=== PATIENT | female | born 1960 | race Caucasian/White ===

== ENCOUNTER 2019-06-04 08:16 | Inpatient (IN) ==
--- NOTE | 2019-05-17 08:33 | PAT Medication Instructions ---
Medication Instructions Date of Service May 17, 2019 Home Medications amlodipine 5 mg PO QPM coQ10 (ubiquinol) 400 mg PO QPM [Glucosamine-MSM Complex] 1 tab PO QPM lisinopril 40 mg PO QPM meloxicam 15 mg PO QPM multivitamin 1 tab PO QPM pravastatin 20 mg PO QPM ASK your surgeon for instructions meloxicam 15 mg PO QPM STOP taking 2 weeks before surgery If surgery is within 2 weeks, stop taking as soon as possible. coQ10 (ubiquinol) 400 mg PO QPM [Glucosamine-MSM Complex] 1 tab PO QPM Take evening before surgery amlodipine 5 mg PO QPM lisinopril 40 mg PO QPM multivitamin 1 tab PO QPM pravastatin 20 mg PO QPM NOTHING TO EAT OR DRINK AFTER MIDNIGHT Other Notes If you have any questions please call us at [phone] or [phone] or [phone] or [phone]
--- NOTE | 2019-05-17 10:02 | Anesthesiology Consultation ---
Date of Service May 17, 2019 Assessment & Plan (1) Encounter for pre-operative examination: Preseptal vs orbital cellulitis -- patient is currently being treated with second round of ABX and eye drops. She will be seeing her PCP for f/u and pre-op clearance prior to surgery. Chart Review Chart Review: Acceptable Risk for Surgery and Patient seen in Pre Admission Testing Teaching & Discussion Instructed NPO after midnight before surgery, except medications with 15 cc of water. Medication instructions provided according to the PAT guidelines. History Surgery Operation Date: 06/04/19 07:45 Proposed Procedures p L4-S1 Decompression and Fusion, Spinal Cord Monitoring - David Ferguson, Height/Weight Height: 5 ft 2.5 in Weight: 94.5 kg Allergies Allergy/AdvReac Type Severity Reaction Status Date / Time MCCRACKEN CATHETER AdvReac Intermediate EXTREME Uncoded 05/17/19 10:15 ABDOMINAL PAIN Medications Home Medications Medication Instructions Recorded Confirmed Last Taken amlodipine 5 mg PO QPM 05/11/19 05/11/19 Unknown coQ10 (ubiquinol) 400 mg PO QPM 05/11/19 05/11/19 Unknown yzcldxjtb-yeb-T-karen-herbal 21 1 tab PO QPM 05/11/19 05/11/19 Unknown [Glucosamine-MSM Complex] lisinopril 40 mg PO QPM 05/11/19 05/11/19 Unknown meloxicam 15 mg PO QPM 05/11/19 05/11/19 Unknown multivitamin 1 tab PO QPM 05/11/19 05/11/19 Unknown pravastatin 20 mg PO QPM 05/11/19 05/11/19 Unknown Past Medical History Medical History Arthritis Hx of migraines Hyperlipidemia Hypertension Spinal stenosis Urinary, incontinence, stress female Exercise / Class Metabolic Activity II 4-5 Yardwork/Stairs/Walk up hill (Denies CP or SOB with 1 FOS) Past Family History Family History Mother Family history of diabetes mellitus Past Surgical History Surgical History History of appendectomy History of colonoscopy History of dilatation and curettage History of tonsillectomy and adenoidectomy Hx of cone biopsy of cervix Hx of hysterectomy [place] teeth removed Past Anesthesia History No Hx of Anesthesia Complications and No Family Hx of Anesthesia Complications History of PONV No Hx of PONV and No Hx of Motion Sickness Social History Smoking Status: Never smoker Do You Dip or Chew Tobacco: No Hx Alcohol Use: No Hx Substance Use: No Review of Systems Pt denies any recent chest pain, shortness of breath, palpitations, cough, fever or URI. +ORBITAL/PRESEPTAL CELLULITIS, BEING TREATED WITH ANTIBIOTIC EYE DROPS AND PO CLINDAMYCIN. WILL HAVE FOLLOW-UP/CLEARANCE WITH PCP PRIOR TO SURGERY. Physical Exam Vital Signs BP: 146/80 (PCP monitoring and pt keeping log of home readings) P: 82bpm SPO2: 98% RA T: 98.0 F R: 16 Constitutional + obese ENMT Mouth: + dental restorations (fillings and bonding only); no chipped teeth and no loose teeth Thyromental Distance: < 3.5 Finger Breadths (2.5) Mallampati Class: II (narrow posterior oropharynx) Eyes: L sclera erythematous and watery. No purulent discharge. Periorbital skin erythematous, nontender. R eye normal. Neck normal visual inspection and + limited neck extension (mildly) Respiratory normal respiratory effort Auscultation: lungs clear to auscultation bilaterally Cardiovascular Rate/Rhythm: regular rate and regular rhythm Heart Sounds: no murmur Extremities: no edema Testing Laboratory Results 05/17/19 10:42 05/17/19 10:42 PT 11.1 Seconds (9.0-12.0) 05/17/19 10:42 INR 1.1 (0.9-1.1) 05/17/19 10:42 APTT 29.9 Seconds (21.0-31.0) 05/17/19 10:42 Urine Color Yellow 05/17/19 Unknown Urine Appearance Clear (Clear) 05/17/19 Unknown Urine pH 7.0 (4.5-7.5) 05/17/19 Unknown Ur Specific [place] 1.009 (1.000-1.030) 05/17/19 Unknown Urine Protein Negative (Negative) 05/17/19 Unknown Urine Glucose (UA) Negative (Negative) 05/17/19 Unknown Urine Ketones Negative (Negative) 05/17/19 Unknown Urine Nitrite Negative (Negative) 05/17/19 Unknown Ur Leukocyte Esterase Negative (Negative) 05/17/19 Unknown Blood Type O Positive 05/17/19 10:42 Antibody Screen NEGATIVE 05/17/19 10:42 Electrocardiogram Date: 05/17/19 Findings: + NSR @ (83bpm with PACs) Chest X-Ray Date: 05/17/19 Findings: + NAD
--- NOTE | 2019-05-17 11:11 | XRay Report ---
XR chest Pre-admission PA/Lat CLINICAL HISTORY: 58 years-old Female presenting with preoperative assessment. TECHNIQUE: PA and lateral views of the chest were obtained. COMPARISON: None. FINDINGS: Cardiomediastinal silhouette normal. Lungs and pleural spaces clear. Degenerative changes of the thor acic spine. Upper abdomen normal. IMPRESSION: 1. No acute cardiopulmonary disease. ACT 112: Negative or not required by law. Electronically signed by: Vahe Fair M.D. 05/17/2019 11:10 AM
[2019-05-17 11:33] LABS: Basophils # (auto) 0.04 K/uL (0-0.2); Basophils % (auto) 0.8 %; Eosinophils # (auto) 0.16 K/uL (0-0.5); Hematocrit (blood only) 40.6 % (37-47); Hemoglobin 13.8 g/dL (12.0-16.0); Immature Granulocytes # (auto) 0.01 K/uL (0.00-0.02); Immature Granulocytes % (auto) 0.2 %; Lymphocytes # (auto) 1.75 K/uL (1.2-3.4); Lymphocytes % (auto) 33.3 %; Mean Corpuscular Hemoglobin 33.8 pg (25-34); Mean Corpuscular Volume 99.5 fL (80-100); Mean Platelet Volume 10.2 fL (7.4-10.4); Monocytes # (auto) 0.61 K/uL (0.11-0.59); Monocytes % (auto) 11.6 %; Neutrophils # (auto) 2.68 K/uL (1.4-6.5); Neutrophils % (auto) 51.1 %; Platelet Count 251 K/uL (130-400); RDW Coefficient of Variation 12.5 % (11.5-14.5); RDW Standard Deviation 45.6 fL (36.4-46.3); Red Blood Count 4.08 M/uL (4.2-5.4); White Blood Count 5.25 K/uL (4.8-10.8)
[2019-05-17 11:48] LABS: INR 1.1 (0.9-1.1); Partial Thromboplastin Ratio 1.1; Partial Thromboplastin Time 29.9 Seconds (21.0-31.0); Prothrombin Time 11.1 Seconds (9.0-12.0)
[2019-05-17 11:50] LABS: BUN Creatinine Ratio 23.1 (10-20); Calcium 9.4 mg/dl (8.5-10.1); Creatinine Clr Calc Pharmacy 95.7 ml/min; Est GFR (African American) 110.4; Est GFR (Non-African American) 95.2; Potassium 4.3 mmol/L (3.5-5.1)
[2019-05-17 12:10] LABS: Appearance Urine Clear (Clear); Bilirubin Urine Negative (Negative); Blood Urine Negative (Negative); Color Urine Yellow; Glucose Urine UA Negative (Negative); Ketones Urine Negative (Negative); Leukocyte Esterase Urine Negative (Negative); Nitrite Urine Negative (Negative); Protein Urine Negative (Negative); Specific Gravity Urine 1.009 (1.000-1.030); Urobilinogen Urine Negative (Negative)
--- NOTE | 2019-05-17 13:12 | Electrocardiogram Report ---
Test Reason : Blood Pressure : / mmHG Vent. Rate : 083 BPM Atrial Rate : 083 BPM P-R Int : 158 ms QRS Dur : 090 ms QT Int : 378 ms P-R-T Axes : 069 075 060 degrees QTc Int : 444 ms Sinus rhythm with Premature atrial complexes Otherwise normal ECG No previous ECGs available Confirmed by Rene Quinones ([id number]) on 05/17/2019 1:12:27 PM Referred By: David Ferguson Confirmed By:Rene Quinones
--- NOTE | 2019-05-25 11:21 | History & Physical Report ---
Date of Service May 25, 2019 Assessment & Plan (1) Lumbar disc herniation with radiculopathy: At this time the patient having progressive decline in neurologic function increased pain and inability to ambulate. Subsequently recommending urgent decompression fusion L4-5 L5-S1 in order to avoid permanent neurologic sequela I with lower extremity weakness risks of blood clots from the lower extremity disuse. Risk benefits pros cons alternatives were outlined in detail. Present on Admission?: Yes History of Present Illness Chief Complaint: Back and leg pain with progressive weakness Primary Care Provider: SYLVIA GARDUNO This is a 58-year-old female that presents with severe back and bilateral leg pain with marked limitations with standing and ambulation. She is noting progressive neuro deficits and weakness to the lower extremities. Allergies Allergy/AdvReac Type Severity Reaction Status Date / Time MCCRACKEN CATHETER AdvReac Intermediate EXTREME Uncoded 05/17/19 10:15 ABDOMINAL PAIN Home Medications Home Medications Medication Instructions Recorded Confirmed Type amlodipine 5 mg PO QPM 05/11/19 05/11/19 History coQ10 (ubiquinol) 400 mg PO QPM 05/11/19 05/11/19 History kunrzreag-zdx-Z-karen-herbal 21 1 tab PO QPM 05/11/19 05/11/19 History [Glucosamine-MSM Complex] lisinopril 40 mg PO QPM 05/11/19 05/11/19 History meloxicam 15 mg PO QPM 05/11/19 05/11/19 History multivitamin 1 tab PO QPM 05/11/19 05/11/19 History pravastatin 20 mg PO QPM 05/11/19 05/11/19 History Past Med/Surg History Medical History Arthritis Hx of migraines Hyperlipidemia Hypertension Spinal stenosis Urinary, incontinence, stress female Surgical History History of appendectomy History of colonoscopy History of dilatation and curettage History of tonsillectomy and adenoidectomy Hx of cone biopsy of cervix Hx of hysterectomy [place] teeth removed Family History Mother Family history of diabetes mellitus Social History Preferred Language: [place] Pigment And Lacquer Mixer Required: No Beliefs That Will Affect Care: None Current Living Situation: Spouse Feels Safe at Home: Yes Safety Concerns: Feels Safe At This Time Smoking Status: Never smoker Do You Dip or Chew Tobacco: No ; Second Hand Exposure: No ; Tobacco Cessation Education Requested by Patient: No Hx Alcohol Use: No Hx Substance Use: No Physical Exam Physical Exam: Patient is alert and oriented Patient exhibits stooped posture with ambulation. Bench exam reveals 4/5 bilateral dorsiflexion and 4+/5 quadricep bilaterally. Plantarflexion appears to be intact. Deep tendon reflexes are blunted. Heart is regular rate and rhythm Lungs clear to auscultation Results & Data Diagnostic Findings MRI lumbar spine demonstrates evidence of marked to space collapse and retrolisthesis at L5-S1. There is anterolisthesis appreciable at L4-5 with bilateral massive facet cysts left greater than right. Axial views confirm facet cyst occupying the lateral recesses and central canal creating severe spinal stenosis.
[~2019-06-04 08:16] MED LIST: ACETAMINOPHEN 500 MG TAB PO SCH; CEFAZOLIN 2000MG 2,000 MG/15 ML SYR IV SCH; CeleBREX 200 MG CAP PO SCH; GABAPENTIN 600 MG DOSE PO SCH; LR 15ML/HR IV SCH; SODIUM CHLORIDE 0.9% 250 ML IV PRN
--- NOTE | 2019-06-04 09:19 | History & Physical Bridge Note ---
Date of Service June 04, 2019 History & Physical Bridge Note I have examined the patient, reviewed the History & Physical and in the interval since the performance of the History & Physical I have noted the following changes of clinical significance: no changes noted
[2019-06-04] MEDS ORDERED: MIDAZOLAM HCL 1 MG/ML 2ML VIAL ONE (09:38)
[2019-06-04] MEDS ORDERED: fentaNYL citrate 100 MCG/2 ML VIAL ONE (09:38)
[2019-06-04] MEDS ORDERED: ROCURONIUM BROMIDE 10 MG/ML 5 ML VIAL ONE (09:38)
[2019-06-04] MEDS ORDERED: ONDANSETRON INJ 2 MG/ML 2 ML VIAL ONE (09:38)
[2019-06-04] MEDS ORDERED: LIDOCAINE HCL 2% 2 ML VIAL/AMP(20MG/ML) INFIL ONE (09:38)
[2019-06-04] MEDS ORDERED: PROPOFOL IV EMULSION 10 MG/ML 20 ML VIAL IV ONE (09:38)
[2019-06-04] MEDS ORDERED: ONDANSETRON INJ 2 MG/ML 2 ML VIAL IV PRN ×2 (09:43→14:21)
[2019-06-04] MEDS ORDERED: HYDROmorphone INJ 2 MG/ML SYR/VIAL IV PRN (09:43)
[2019-06-04] MEDS ORDERED: ePHEDrine sulfate 50 MG/ML AMP IV PRN (09:43)
[2019-06-04] MEDS ORDERED: ATROPINE SULFATE 0.1 MG/ML 10ML SYR IV PRN (09:43)
[2019-06-04] MEDS ORDERED: PROMETHAZINE HCL 12.5 MG in SODIUM CHLORIDE 0.9% 50 ML IV PRN ×2 (09:43→14:21)
[2019-06-04] MEDS ORDERED: fentaNYL citrate 100 MCG/2 ML VIAL IV PRN (09:43)
[2019-06-04] MEDS ORDERED: METOCLOPRAMIDE HCL INJ 5 MG/ML 2 ML VIAL IV PRN ×2 (09:43→14:21)
[2019-06-04] MEDS ORDERED: BUPIVACAINE/EPINEPHRINE 0.5% MPF 1:200,000 10 ML VIAL ONE (09:50)
[2019-06-04] MEDS ORDERED: BACITRACIN INJ 50,000 UNIT VIAL ONE (09:50)
[2019-06-04] MEDS ORDERED: FLOSEAL HEMOSTATIC MATRIX 10ML TOP ONE (11:06)
[2019-06-04] MEDS ORDERED: HYDROmorphone INJ 2 MG/ML SYR/VIAL ONE (12:06)
--- NOTE | 2019-06-04 12:48 | Operative Report ---
Post Operative Report Pre & Post Diagnosis Operation Date: 06/04/19 10:05 Pre-Op Diagnosis: Lumbar Disc Herniation with Radiculopathy L4-S1 Post-Op Diagnosis: Lumbar Disc Herniation with Radiculopathy L4-S1 I identified the patient and participated in the time-out.: Yes Procedure Operation Date: 06/04/19 10:05 Actual Procedures #1 lumbar decompression with bilateral medial facetectomies and foraminotomies L3-4, L4-5 and L5-S1. #2 posterior spinal fusion L4-5 L5-S1. #3 placement posterior instrumentation L4-5 L5-S1 per #4 interbody fusion L4-5 and L5-S1. #5 placed a peek cage 13 x 22 mm at L4-5 and 8 x 22 mm at L5-S1. #6 placement locally harvested morselized autograft in the posterior lateral gutters. #7 placement infuse collagen sponge combined master graft in the posterior lateral gutters and ostial amp and interbody space. Surgeon David Ferguson, DO Cardiac Technologist Carmen Solis Estimated Blood Loss 250 Findings See Below The patient is 5 foot 2 inches tall weighing over 94 kg with a BMI in excess of 37. The patient's body habitus did add significant technical difficulty requiring her deepest retractors and longus instruments in order to perform her procedure. This added at least 40% increase in the operative time. Specimens None Indications This is a 58-year-old female who presents with above-mentioned diagnosis. Patient had severe spinal stenosis and significant decline in ability to ambulate and lower extremity strength. Subsequently she underwent urgent decompression and fusion. Description of Procedure Patient was met with preoperatively case discussed all questions addressed. After informed consent obtained patient was taken to the operative suite underwent intubation placed in a prone position the Asad table on top of the [place] frame. All bony prominences well-padded eyes inspected to ensure no external pressure placed upon the. This point the lumbar spine was prepped and draped in the normal sterile fashion. Sharp dissection with the assistance of Bovie cautery performed down to and exposing the lamina and transverse processes of L4-L5 and the sacral ala bilaterally. From a caudal cephalad fashion complete laminectomy of L5 L4 and partial laminectomy of L3 was performed including bilateral medial facetectomies and foraminotomies addressing severe spinal stenosis as well as to massive facet cyst at the 4 5 levels. After this complete pedicle screws were placed in L4-L5 and S1 levels bilaterally with assistance of fluoroscopy and the proper sized jaret placed. By way of a trans- foraminal approach on the right a complete discectomy L5 was was performed endplates curetted to subcortical being bone and a 8 x 22 mm peek cage with osteo-bone graft tapped in position. Then proceeded to L for [address] of a transforaminal approach on the right complete discectomy performed endplate s produce subcortical mean bone and a 13 x 22 mm peek cage filled with osteo- bone graft tapped in position. The rods were then locked in final position bilaterally. The transverse processes of L4-L5 and sacral ala burred to subcortical bleeding bone. Infuse collagen sponge master graft local autograft placed in the posterior lateral gutters. 15 round SANDRA drain inserted. The incision was then closed with 1 Vicryl in the fascia 2-0 Vicryl subcutaneously and 4 Monocryl for final skin closure. Steri-Strip sterile dressings placed. Patient will continue PACU stable condition. Please note spinal cord monitoring was utilized that the procedure no changes noted. Lastly Carmen Solis was present at the entire procedure involved the patient positioning complex portions of the surgery and final skin closure. I attest to the content of the Intraoperative Record and any orders documented therein. Any exceptions are noted below.
--- NOTE | 2019-06-04 13:14 | Fluoroscopy Report ---
FL lumbar spine 2-3V CLINICAL HISTORY: L4-S1 DECOMP COMPARISON STUDY: None. FLUOROSCOPY TIME: 24.4 seconds. FLUOROSCOPIC IMAGES: 2 FINDINGS: These images demonstrate L4-L5 and L5-S1 discectomies with interbody spacer placement. Post erior decompression is noted. Bilateral pedicle screws at the L4, L5 and S1 levels with interconnecti ng rods are noted. Hardware is intact. IMPRESSION: Fluoroscopy provided for L4-L5 and L5-S1 discectomies and bilateral pedicle screw fusion . ACT 112: Negative or not required by law. Electronically signed by: Mark Cordova M.D. 06/04/2019 1:13 PM
--- NOTE | 2019-06-04 14:00 | Anesthesiology Progress Note ---
Date of Service June 04, 2019 Anesthesia Post Procedure Vital Signs Vital Signs: Temp Pulse Pulse Resp BP Pulse Ox 06/04/19 13:45 102 H 15 137/96 96 06/04/19 13:35 99 H 14 149/88 H 100 06/04/19 13:29 36.4 C L 99 H 16 149/88 H 100 06/04/19 08:44 36.8 C 100 H 16 149/90 H 95 Transfer of Care Handoff Completed per policy Notes Mental Status: alert / awake / arousable and participated in evaluation Patient Amnestic to Procedure: Yes Nausea / Vomiting: adequately controlled Pain: adequately controlled Airway Patency, RR, SpO2: stable & adequate BP & HR: stable & adequate Hydration State: stable & adequate Anesthetic Complications: no major complications apparent
[2019-06-04] MEDS ORDERED: ALUMINUM/MAGNESIUM SUSP 30 ML UDC PO PRN (14:21)
[2019-06-04] MEDS ORDERED: bisacodyL 10 MG SUPP PR PRN (14:21)
[2019-06-04] MEDS ORDERED: OXYCODONE HCL IR 5 MG TAB (IMMEDIATE RELEASE) PO PRN (14:21)
[2019-06-04] MEDS ORDERED: ACETAMINOPHEN 1,000 MG/100 ML VIAL IV PRN (14:21)
[2019-06-04] MEDS ORDERED: MAGNESIUM HYDROXIDE SUSP 30 ML UDC PO PRN (14:21)
[2019-06-04] MEDS ORDERED: DO NOT ADMINISTER PNEUMOCOCCAL VACCINE PRN (14:21)
[2019-06-04] MEDS ORDERED: HYDROmorphone INJ 1 MG/ML SYRINGE IV PRN (14:21)
[2019-06-04] MEDS ORDERED: HYDROmorphone INJ 0.5 MG/0.5 ML SYR IV PRN (14:21)
[2019-06-04] MEDS ORDERED: ONDANSETRON 4 MG OD TAB PO PRN (14:21)
[2019-06-04] MEDS ORDERED: LORazepam 0.5 MG TAB PO PRN (14:21)
[2019-06-04] MEDS ORDERED: SOD PHOSPHATE/SOD BIPHOSPHATE ENEMA 132 ML BTL PR PRN (14:21)
[2019-06-04] MEDS ORDERED: DO NOT ADMINISTER FLU VACCINE PRN (14:21)
[2019-06-04] MEDS ORDERED: LORazepam 0.5 MG/1 ML VIAL IV PRN (14:21)
[2019-06-04] MEDS ORDERED: NALOXONE HCL 0.4 MG/1 ML VIAL/CARP IV PRN (14:21)
[2019-06-04] MEDS ORDERED: FAMOTIDINE 20 MG TAB PO PRN (14:21)
[2019-06-04] MEDS ORDERED: TRAMADOL HCL 50 MG TABLET PO PRN (14:21)
[2019-06-04] MEDS: PATIENT'S ALLERGY INFO NEEDS ENTERED SCH ×5 (14:33→14:47)
[2019-06-04] MEDS: LACTATED RINGER'S 1,000 ML IV SCH (15:10)
[2019-06-04] MEDS: KETOROLAC TROMETHAMINE 15 MG/ML VIAL IV SCH ×5 (15:11→20:21)
[2019-06-04] MEDS: CEFAZOLIN 2000MG 2,000 MG/15 ML SYR IV SCH (18:00)
[2019-06-04] MEDS: DOCUSATE SODIUM/SENNA 50/8.6MG TAB PO SCH (20:19)
[2019-06-04] MEDS: MULTIVITAMIN TAB PO SCH (20:20)
[2019-06-04] MEDS: PRAVASTATIN SOD 20 MG TAB PO SCH (20:20)
[2019-06-04] MEDS: lisinopriL 40 MG TAB PO SCH (20:24)
[2019-06-04] MEDS: AMLODIPINE BESYLATE 5 MG TAB PO SCH (20:25)
[2019-06-04] MEDS ORDERED: COQ10 PO SCH (21:00)
[2019-06-05] MEDS: LACTATED RINGER'S 1,000 ML IV SCH (00:47)
[2019-06-05] MEDS: CEFAZOLIN 2000MG 2,000 MG/15 ML SYR IV SCH (02:54)
[2019-06-05] MEDS: KETOROLAC TROMETHAMINE 15 MG/ML VIAL IV SCH ×2 (02:55→09:35)
[2019-06-05 05:05] LABS: Basophils # (auto) 0.01 K/uL (0-0.2); Basophils % (auto) 0.1 %; Hemoglobin 10.7 g/dL (12.0-16.0); Immature Granulocytes # (auto) 0.03 K/uL (0.00-0.02); Immature Granulocytes % (auto) 0.2 %; Lymphocytes # (auto) 1.17 K/uL (1.2-3.4); Lymphocytes % (auto) 9.5 %; Mean Corpuscular Hemoglobin 33.4 pg (25-34); Mean Corpuscular Hgb Conc 33.4 g/dL (32-36); Mean Platelet Volume 10.5 fL (7.4-10.4); Monocytes % (auto) 9.7 %; Neutrophils # (auto) 9.94 K/uL (1.4-6.5); Neutrophils % (auto) 80.5 %; Platelet Count 229 K/uL (130-400); RDW Coefficient of Variation 12.9 % (11.5-14.5); RDW Standard Deviation 47.1 fL (36.4-46.3); White Blood Count 12.35 K/uL (4.8-10.8)
[2019-06-05 05:36] LABS: BUN Creatinine Ratio 17.9 (10-20); Calcium 8.3 mg/dl (8.5-10.1); Creatinine Clr Calc Pharmacy 104.3 ml/min; Est GFR (Non-African American) 99.2
[2019-06-05] MEDS: POLYETHYLENE (MIRALAX) 17 GM PACK PO SCH ×3 (05:50→17:52)
--- NOTE | 2019-06-05 08:02 | Anesthesiology Progress Note ---
Date of Service June 05, 2019 Anesthesia Post Procedure Vital Signs Vital Signs: Temp Pulse Pulse Pulse Resp BP Pulse Ox 06/05/19 07:15 36.6 C 80 16 116/73 95 06/05/19 02:55 36.7 C 97 H 16 121/73 95 06/04/19 23:34 36.6 C 102 H 16 110/66 94 06/04/19 20:19 109 H 131/76 06/04/19 19:00 36.8 C 105 H 16 126/82 95 06/04/19 17:08 36.6 C 109 H 16 118/79 96 06/04/19 16:01 36.3 C L 115 H 16 121/72 95 06/04/19 15:13 36.4 C L 98 H 16 127/74 97 06/04/19 14:34 36.4 C L 84 16 132/80 92 06/04/19 14:03 36.4 C L 97 H 16 138/83 97 06/04/19 13:45 102 H 15 137/96 96 06/04/19 13:35 99 H 14 149/88 H 100 06/04/19 13:29 36.4 C L 99 H 16 149/88 H 100 06/04/19 08:44 36.8 C 100 H 16 149/90 H 95 Pain Intensity Lower Back: Pain Intensity: 3 Notes Mental Status: alert / awake / arousable and participated in evaluation Nausea / Vomiting: adequately controlled Pain: adequately controlled Airway Patency, RR, SpO2: stable & adequate BP & HR: stable & adequate Hydration State: stable & adequate Anesthetic Complications: no major complications apparent
--- NOTE | 2019-06-05 10:24 | Orthopedic Progress Note ---
Date of Service June 05, 2019 Assessment & Plan (1) Lumbar disc herniation with radiculopathy: At this time we will continue physical therapy monitor SANDRA output anticipate discharge home in the next few days. Present on Admission?: Yes Admission and Anticipated Discharge Date Admission Date: June 04, 2019 Subjective Back pain controlled leg symptoms markedly improved. Physical Exam Physical Exam: Patient is in the chair at the bedside. She demonstrates improved strength testing. She tolerated physical therapy well. Results & Data ([facility]) Vital Signs (Past 12 Hours) Vital Signs Temp Pulse Pulse Resp BP Pulse Ox 06/05/19 07:15 36.6 C 80 16 116/73 95 06/05/19 02:55 36.7 C 97 H 16 121/73 95 06/04/19 23:34 36.6 C 102 H 16 110/66 94
[2019-06-05] MEDS: ACETAMINOPHEN 500 MG TAB PO PRN (19:49)
[2019-06-05] MEDS: DOCUSATE SODIUM/SENNA 50/8.6MG TAB PO SCH (20:54)
[2019-06-05] MEDS: MULTIVITAMIN TAB PO SCH (20:58)
[2019-06-05] MEDS: PRAVASTATIN SOD 20 MG TAB PO SCH (20:58)
[2019-06-05] MEDS: lisinopriL 40 MG TAB PO SCH (20:58)
[2019-06-05] MEDS: AMLODIPINE BESYLATE 5 MG TAB PO SCH (20:58)
[2019-06-06] MEDS: POLYETHYLENE (MIRALAX) 17 GM PACK PO SCH (00:52)
[2019-06-06] MEDS: ACETAMINOPHEN 500 MG TAB PO PRN (05:54)
--- NOTE | 2019-06-06 10:45 | Discharge Summary ---
Date of Service June 06, 2019 Admission HPI Per Admitting Provider This is a 58-year-old female that presents with severe back and bilateral leg pain with marked limitations with standing and ambulation. She is noting progressive neuro deficits and weakness to the lower extremities. Principal Diagnosis Lumbar spinal stenosis with neurogenic claudication Discharge Data Allergies Allergy/AdvReac Type Severity Reaction Status Date / Time latex Allergy Unknown Unknown Verified 06/04/19 08:47 MCCRACKEN CATHETER AdvReac Intermediate EXTREME Uncoded 06/04/19 08:47 ABDOMINAL PAIN Consultations 06/04/19 14:21 Consult Case Management - Discharge Planning Routine Procedures Performed Operation Date: 06/04/19 10:05 Actual Procedures p L4-S1 Decompression and Instrumented Fusion, with Application of Osteoamp Allograft, Application of Bone Morphogenetic Protein, Interbody Fusion and Spinal Cord Monitoring(Not Applicable) - David Ferguson DO Ordered Studies 06/04/19 10:05 FL fluoroscopy <1hr Routine [place] lumbar spine 2-3V Routine Hospital Course (1) Lumbar disc herniation with radiculopathy: Patient underwent lumbar decompression fusion tolerated this well was taken to orthopedic for postoperative. Postop day #1 her leg symptoms and s trength appear to be improving. She progressed to postop day #2 SANDRA drain decreasing appropriately. Pain well controlled. Subsequently discharged home. Discharge orders and instructions from the chart for further review. Total Time Total Time Spent Total Time Spent (In Minutes): 20 minutes Discharge Plan Discharge Items Patient Disposition: Home - Self-Care Reason For Visit: THORACOLUMBAR & LUMBOSACRAL IV DISC DISORDER Discharge Diagnosis: Lumbar spinal stenosis with neurogenic claudication Activity: As commented below Non-emergency contact: Primary Care Provider Call non-emergency contact if: you have any medication questions Follow-up/Referrals: SYLVIA GARDUNO [Other] Diet: Regular Addtl Attending Provider Instructions: ACTIVITY RECOMMENDATIONS: SELF CARE INSTRUCTIONS AFTER THORACIC/LUMBAR FUSIONS 1. You may walk to your tolerance. It is good exercise for your legs and back. Expect some back and intermittent leg aches and pains. 2. You may perform "counter-top" level activities (make a sandwich, marce with a project, etc.). 3. No bending or lifting of more than 10 pounds or back twisting of any nature (roll like a log when turning in bed). 4. You may ride in a car for 20-30 minutes at a time. No driving until after your first visit with your doctor. 5. Frequent changes of position and restricting sitting to 30 minutes at a time will help limit the amount of back spasms and stiffness you may experience. 6. You may discontinue the use of ambulatory aids (cane, crutches, etc.) once your strength and confidence allow. 7. You may propulsion machinery service engineer the shower and let water strike your incision when you arrive home at least once daily. Do not take a tub bath, sit in a hot tub or go into a swimming pool until after your first recheck in the office. SPECIAL CARE INSTRUCTIONS: VERY IMPORTANT TO READ AND REVIEW A. Your surgical incision has been closed with a cosmetic suture under the skin that will dissolve in about 6 weeks. In 14 days, you can use a pair of clean scissors and cut the suture that is left outside of the skin at the ends of your incision. 1. The small skin tapes can be removed 7 days after surgery if they have not fallen off by that point. 2. You may keep the wound open to air as much as possible to promote healing after post-op day number 5 unless told otherwise by your doctor. 3. If you think the wound looks like it is becoming infected (redness or worsening drainage) and/or you are experiencing fever, chill or worsening back pain and muscle spasms, contact the office so that we may evaluate you as soon as possible. B. Complications are uncommon, but please contact us if you have any signs or symptoms of: 1. wound infection (fever higher than 102.5 degrees F, redness, separation of wound, drainage, or increasing pain from the incision) 2. blood clots in legs (pain, swelling, redness and warmth in legs) 3. urinary tract infection (fever higher than 102.5 degrees F, burning upon urination or increased frequency of urination) 4. nerve problems (inability to walk on your toes or heels, numbness, loss of bowel or bladder control) 5. any other symptoms that concern you C. Please call the office at if you have any concerns or questions about your operation or recovery. D. No smoking! Smoking drastically decreases the chance of a solid fusion. E. Do not take any anti-inflammatory medications (Indocin, Advil, Motrin, Aspirin, Naprosyn, etc.) as these may inhibit the chance of a solid fusion. Tylenol is okay to take for pain. MANAGING PAIN AFTER SPINAL SURGERY 1. Narcotic medication is intended for short-term use and will be provided for surgical pain. Surgical pain usually lasts for a period of 4-6 weeks. Narcotic medication includes Percocet, Vicodin, Darvocet, Tylenol #3 or Lortab. 2. Longer-term pain is more appropriately treated with non-narcotic medication such as Tylenol ES. 3. Muscle spasm is not appropriately treated with narcotics. Muscle relaxers such as Soma, Flexeril or Skelaxin can be used along with Tylenol ES. 4. Remember that we all live with some "aches and pains". This is not unusual or uncommon after an injury or as we get older. a. Back pain is expected and may include muscle spasms for 4 to 6 weeks after surgery. The pain should gradually improve. If the pain worsens for no apparent reason, please contact the office. b. Intermittent leg pain may also be experienced and should not be concerned about unless it worsens for no apparent reason. If so, please contact the office. 5. We will provide appropriate medication within the normal guidelines of their prescribed use. We will also be very cautious and aware of potential abuse and extended duration of patients' medication needs. a. Pain medications are for your comfort and to assist with sleep and rest so that the tissue can heal. They are not provided in order to return to normal activity and should not be used through the day. To do so or worsening pain at night can result from ongoing tissue damage and developm ent of tolerance to the prescribed medicine. 6. Please allow 2-3 days to process refills. Prescriptions will not be mailed but must be picked up at the office. FOLLOW UP VISIT: Keep your scheduled follow-up appointment. Any questions, please call the office at . Pending Studies at Discharge: No Stand-Alone Forms: [employer], Smoking Cessation Medications and DC Order Prescriptions: New oxycodone 5 mg tablet 5 mg PO Q6H PRN (Reason: pain, severe) Qty: 30 RF: 0 tramadol 50 mg tablet 50 mg PO Q6H PRN (Reason: pain, moderate) Qty: 30 RF: 0 Continued multivitamin Tablet 1 tab PO QPM RF: 0 Glucosamine-MSM Complex Tablet 1 tab PO QPM RF: 0 amlodipine 5 mg Tablet 5 mg PO QPM RF: 0 pravastatin 20 mg Tablet 20 mg PO QPM RF: 0 lisinopril 40 mg Tablet 40 mg PO QPM RF: 0 coQ10 (ubiquinol) 200 mg Capsule 400 mg PO QPM RF: 0 Discontinued meloxicam 15 mg Tablet 15 mg PO QPM RF: 0 Discharge Orders: Discharge Order (Routine); Ordered 06/06/19 Ordered By: David Ferguson Admission Data Admit Date/Time: 06/04/19 13:32 Attending Provider: David Ferguson Admit Provider: David Ferguson
== END 2019-06-06 14:24 | disposition home or self-care (01) | DRG 455 ==
LOC: ASU 08:16 → 3E 13:32

== ENCOUNTER 2021-04-12 11:47 | Inpatient (IN) ==
[2021-04-12] MEDS ORDERED: KETOROLAC 30 MG/ML VIAL IV ONE (12:12)
[2021-04-12] MEDS ORDERED: CYCLOBENZAPRINE HCL 10 MG TAB PO STA (12:12)
--- NOTE | 2021-04-12 12:40 | Emergency Department Note ---
Impression & Plan Lumbar disc herniation with radiculopathy, Spinal stenosis, Bladder incontinence ED Provider Note CHIEF COMPLAINT: Back pain HISTORY OF PRESENT ILLNESS: No Manley is a 60 year old female with history of lumbar disc herniation s/p decompression, fusion and hardware placement with Dr. Ferguson in May 2019 who presents to the Emergency Department for evaluation of pain to her mid-lower back radiating into her bilateral buttocks, hips, groin and bilateral legs with associated intermittent numbness/tingling in her right toes which has been worsening over the past 7-8 months. Her symptoms are worse on the right side and she associates some weakness in her right leg as well. She also states that her bladder is becoming harder to control as she has become more incontinent. No incontinence of her bowels. She did have one episode of numbness/tingling in her groin last week but that has since subsided, no additional saddle paresthesias. She does note intermittent spasming pains radiating to her perispinal region and upper back. No specific pain or paresthesias in her neck or arms. Currently, she rates her discomfort as a 10/10 which worsens with attempts of laying flat. She has been sleeping sitting up in a chair due to her pains. She has been using ice/heat, stretching and taking Tylenol and Meloxicam without relief of her symptoms. Prior to the time of onset of her symptoms, the patient states that she had suffered a fall back in September after having a knee replacement. She did have imaging at that time which showed "disc problems and fluid" above where she had previously had surgery. Since then, the patient had been following with pain management and at her last appointment in December, she had a steroid injection in the SI joint. Following that appointment, her pain and symptoms have continued and have since become worse as described above. After discussion with pain management, they advised that she follow up with Dr. Ferguson of Ortho spine for further management. The patient did attempt to make an appointment with Dr. Ferguson but as she was unable to get in until next month and she was no longer able to take the pain anymore, she presents to the ED for further evaluation today. The patient otherwise denies recent fevers/chills, cough, chest pain, shortness of breath, abdominal pain, nausea, vomiting, diarrhea or other acute symptoms. REVIEW OF SYSTEMS: 10 systems were reviewed and were negative unless otherwise stated in HPI as above PHYSICAL EXAM: VITALS: Vitals are noted on the nurse's note and reviewed by myself. Hypertensive and tachycardic. Additional vital signs stable. General: Resting at the edge of the bed, tearful but no acute distress Head/Eyes: Normocephalic, atraumatic, PERRL, EOMI Neck: No mid-line cervical tenderness, ROM intact without pain Resp: Good inspiratory effort on room air, lung sounds clear bilaterally CV: Tachycardic rate, regular rhythm, peripheral pulses palpated Back/Buttocks: Tender to palpation about the midline thoracic and lumbar spine, no obvious step-offs or deformities, no specific tenderness to palpation of the perispinal musculature or buttocks. Abd: Soft, non-tender MSK/Neuro: Tender to palpation of the bilateral hips, R>L, notes tenderness to the bilateral groin and medial thighs radiating into the posterior knees but not reproducible to palpation. Sensation intact and strength 5/5 throughout all extremities Neuro: Awake, alert and oriented x 3, interacting and answering questions ирина ropriately Differential diagnosis includes musculoskeletal, disc herniation, fracture, metastatic disease, cord compression, discitis, sciatica, cauda equina, as well as other pathologies were considered. EMERGENCY DEPARTMENT COURSE: Physical exam and history were performed. Nursing triage notes, EMR, and medication list were personally reviewed. Patient with history of lumbar disc herniation s/p decompression, fusion and hardware placement with Dr. Ferguson in May 2019 who presents to the Emergency Department for evaluation of pain to her mid-lower back radiating into her bilateral buttocks, hips, groin and bilateral legs with associated intermittent numbness/tingling in her right toes which has been worsening over the past 7-8 months. Her symptoms are worse on the right side and she associates some weakness in her right leg as well. She also states that her bladder is becoming harder to control as she has become more incontinent. No incontinence of her bowels. She did have one episode of numbness/tingling in her groin last week but that has since subsided, no additional saddle paresthesias. She does note intermittent spasming pains radiating to her perispinal region and upper back. No specific pain or paresthesias in her neck or arms. Additional history as described above. On exam, she was resting at the edge of the bed, tearful but no acute distress. She did note tenderness to palpation about the midline thoracic and lumbar spine, no obvious step-offs or deformities, no specific tenderness to palpation of the paraspinal musculature or buttocks. Tender to palpation of bilateral hips, right greater than left, notes tenderness to the bilateral groin and medial thighs radiating into the posterior knees but not reproducible to palpation. Sensation intact and strength 5/5 throughout all extremities. No other significant findings on exam. The patient was offered pain medication. IV access was established and she was given Solu-Medrol 40 mg, Toradol 30 mg and Flexeril 10 mg. MRI of the thoracic and lumbar spine were obtained and reviewed by radiologist and myself as below. Of note, there was a disc bulge and superimposed right paracentral disc extrusion with superior subligamentous migration at L3-L4 in addition to facet arthrosis and ligamentous hypertrophy resulting in moderate to severe narrowing of the central canal and severe stenosis of the bilateral lateral recesses and neural foramen. Upon reevaluation, the patient was having increased muscle spasm-like pains after returning from the MRI but declined additional medication at this time. I discussed the results of the MRI with Dr. Ferguson of orthopedic spine. He suggested admitting the patient to medicine and he would be available for consultation. I did discuss the patient's case with Dr. Marquez of the [facility] hospitalist group who agreed to evaluate the patient for ongoing management. I updated the patient on my discussions with Dr. Ferguson as well as Dr. Marquez. She verbalized her understanding and agreement with the treatment plan as above. The chart was completed utilizing [employer] Voice Recognition Software. Grammatical errors, random word insertions, pronoun errors, and incomplete sentences are an occasional consequence of this system due to software limitations, ambient noise, and hardware issues. Any formal questions or concerns about the content, text, or information contained within the body of this dictation should be directly addressed to the provider for clarification. Past Med/Surg History Medical History Arthritis Hx of migraines Hyperlipidemia Hypertension Lumbar disc herniation with radiculopathy Spinal stenosis Urinary, incontinence, stress female Surgical History History of appendectomy History of colonoscopy History of dilatation and curettage History of lumbar surgery History of tonsillectomy and adenoidectomy Hx of cone biopsy of cervix Hx of hysterectomy [place] teeth removed Family History Mother Family history of diabetes mellitus Social History Smoking Status: Never smoker Second Hand Exposure: No; Hx Alcohol Use: No Hx Substance Use: No Preferred Language: Macedonian Communication Ability: Effective Registration Rep Required: No Beliefs That Will Affect Care: None marital status: Current Living Situation: Spouse Feels Safe at Home: Yes Assistive Devices: Walker Allergies Allergies Allergy/AdvReac Type Severity Reaction Status Date / Time latex Allergy Unknown Unknown Verified 04/12/21 15:00 [employer] AdvReac Intermediate EXTREME Uncoded 04/12/21 15:00 ABDOMINAL PAIN Home Meds Home Medications Medication Instructions Recorded Confirmed amlodipine 5 mg tablet 5 mg PO QPM 05/11/19 04/12/21 coQ10 (ubiquinol) 200 mg capsule 400 mg PO QPM 05/11/19 04/12/21 lisinopril 40 mg tablet 40 mg PO QPM 05/11/19 04/12/21 multivitamin 1 tab PO QPM 05/11/19 04/12/21 pravastatin 20 mg tablet 20 mg PO QPM 05/11/19 04/12/21 acetaminophen 650 mg 1,300 mg PO Q12H PRN 04/12/21 04/12/21 tablet,extended release meloxicam 15 mg tablet 15 mg PO PM 04/12/21 04/12/21 Results & Data (ED) Vital Signs Vital Signs - 24 hr 04/12/21 11:51 04/12/21 12:51 Temperature 36.7 C Temperature Source Temporal Artery Scan Pulse Rate 112 H Respiratory Rate 18 14 Respiratory Effort / Characteristics Non-Labored Respiratory Depth Normal Normal Blood Pressure 193/91 H Blood Pressure Mean 125 Pulse Oximetry 95 99 Oxygen Delivery Method Room Air Room Air Sepsis Recent Fever Within 48 Hours No Sepsis New/Unexplained Change in Mental Status No Sepsis Action Taken by Nursing No Action Required Administered Medications Discontinued Medications Cyclobenzaprine HCl (Cyclobenzaprine Hcl 10 Mg Tab) 10 mg PO NOW STA Stop: 04/12/21 12:13 Last Admin: 04/12/21 12:43 Dose: 10 mg Documented by: [id number] Ketorolac Tromethamine (Ketorolac 30 Mg/Ml Vial) 30 mg IV NOW ONE Stop: 04/12/21 12:13 Last Admin: 04/12/21 12:43 Dose: 30 mg Documented by: [id number] Methylprednisolone (Methylprednisolone 40 Mg/Ml Vial) 40 mg IV NOW STA Stop: 04/12/21 12:13 Last Admin: 04/12/21 12:43 Dose: 40 mg Documented by: [id number] Imaging Data Radiologist's Impression: Thoracic Spine MRI 04/12/21 12:11 THORACIC SPINE MRI HISTORY: mid-lower back pain radiating down buttocks/legs TECHNIQUE: Multiplanar multisequence MRI of the thoracic spine was performed without the use of contrast. COMPARISON: None. FINDINGS: Mild disc space narrowing at C4-C5, C5-C6, and C6-C7. There is 1 mm of anterolisthesis of C4 on C5 and 1 mm retrolisthesis of C5 on C6. Broad-based posterior disc bulge at C5-C6 results in mild central canal narrowing at this level. There is moderate to severe disc space narrowing from T3 through L1 consistent with degenerative change. There are tiny endplate osteophytes within the majority of the thoracic spine. The thoracic spinal cord demonstrates a normal course, caliber, and signal intensity. There are small broad-based posterior disc bulges from C3 through L1 resulting in multilevel mild central canal narrowing. Multilevel bilateral neural foraminal narrowing within the mid to lower thoracic spine due to the disc bulges. No areas of high-grade central canal stenosis. Paravertebral soft tissues are unremarkable. Mild endplate degenerative changes within the lower thoracic spine. No fracture or subluxation. IMPRESSION: 1. No fracture or subluxation within the thoracic spine. 2. Moderate to severe disc space narrowing from T3 through L1 with broad-based posterior disc bulges resulting in multilevel mild central canal and mild bilateral neural foraminal narrowing. No high-grade central canal stenosis within the thoracic spine ACT 112: Negative or not required by law. Electronically signed by: Julián Hahn M.D. 04/12/2021 2:32 PM Lumbar Spine MRI 04/12/21 12:12 MRI OF THE LUMBAR SPINE WITHOUT CONTRAST CLINICAL HISTORY: mid-lower back pain radiating down buttocks/legs COMPARISON STUDY: Lumbar spine fluoroscopic images June 04, 2019. TECHNIQUE: Utilizing a 1.5 Cecille magnet and dedicated coil, multiplanar, multiecho imaging of the lumbar spine was performed without IV contrast. FINDINGS: For purposes of numbering on this exam, the L5-S1 disc space is assigned to axial image 36 and 38. There are postoperative findings consistent with L4-L5 and L5-S1 discectomies with posterior decompression and bilateral pedicle screw fusion from L4 through S1. No intracanalicular mass or fluid collection is present. Conus terminates at the L2 level. Paravertebral soft tissues are unremarkable. There is no lumbar spine fracture. There is no suspicious marrow replacement. L1-2: The central canal and neural foramen are patent. There is mild facet arthrosis. L2-3: There is moderate facet arthrosis. Central canal and neural foramen are patent. L3-4: Note is made of a disc bulge with superimposed right paracentral disc extrusion with superior subligamentous migration. Note is made of facet arthrosis with ligamentous hypertrophy. There is moderate to severe narrowing of the central canal. There is severe narrowing of the bilateral neural foramen and lateral recesses. Patent AP diameter of the canal is 7 mm L4-5: There is no residual central canal stenosis status post decompression. Neural foramen are patent. L5-S1: There is no residual central canal stenosis status post decompression. Neural foramen are suboptimally assessed due to susceptibility artifact. There is mild to moderate bilateral neural foraminal stenosis. IMPRESSION: 1. Disc bulge and superimposed right paracentral disc extrusion with superior subligamentous migration at L3-L4 in addition to facet arthrosis and ligamentous hypertrophy. The findings result in moderate to severe narrowing of the central canal and severe stenosis of the bilateral lateral recesses and neural foramen. 2. Otherwise patent central canal. 3. Status post L4-S1 discectomies, posterior decompression and bilateral pedicle screw fusion. 4. No lumbar spine fracture. ACT 112: Negative or not required by law. Electronically signed by: Mark Cordova M.D. 04/12/2021 2:44 PM Discharge Plan Visit Data Chief Complaint: Back Injury/Pain Stated Complaint: LOW BACK PAIN ED Provider: Anurag Cordoba ED Midlevel Provider: Joselyn Lua Discharge Problem: Lumbar disc herniation with radiculopathy, Spinal stenosis, Bladder incontinence Patient Disposition: Admitted As Inpatient Discharge Instructions Interventions: ED Discharge Assessment Last Done: 04/12/21 17:25
--- NOTE | 2021-04-12 14:34 | Magnetic Resonance Report ---
THORACIC SPINE MRI HISTORY: mid-lower back pain radiating down buttocks/legs TECHNIQUE: Multiplanar multisequence MRI of the thoracic spine was performed without the use of contr ast. COMPARISON: None. FINDINGS: Mild disc space narrowing at C4-C5, C5-C6, and C6-C7. There is 1 mm of anterolisthesis of C4 on C5 an d 1 mm retrolisthesis of C5 on C6. Broad-based posterior disc bulge at C5-C6 results in mild central canal narrowing at this level. There is moderate to severe disc space narrowing from T3 through L1 co nsistent with degenerative change. There are tiny endplate osteophytes within the majority of the tho racic spine. The thoracic spinal cord demonstrates a normal course, caliber, and signal intensity. Th ere are small broad-based posterior disc bulges from C3 through L1 resulting in multilevel mild centr al canal narrowing. Multilevel bilateral neural foraminal narrowing within the mid to lower thoracic spine due to the disc bulges. No areas of high-grade central canal stenosis. Paravertebral soft tissu es are unremarkable. Mild endplate degenerative changes within the lower thoracic spine. No fracture or subluxation. IMPRESSION: 1. No fracture or subluxation within the thoracic spine. 2. Moderate to severe disc space narrowing from T3 through L1 with broad-based posterior disc bulges resulting in multilevel mild central canal and mild bilateral neural foraminal narrowing. No high-gra de central canal stenosis within the thoracic spine ACT 112: Negative or not required by law. Electronically signed by: Julián Hahn M.D. 04/12/2021 2:32 PM
--- NOTE | 2021-04-12 14:45 | Magnetic Resonance Report ---
MRI OF THE LUMBAR SPINE WITHOUT CONTRAST CLINICAL HISTORY: mid-lower back pain radiating down buttocks/legs COMPARISON STUDY: Lumbar spine fluoroscopic images June 04, 2019. TECHNIQUE: Utilizing a 1.5 Cecille magnet and dedicated coil, [facility] without IV contrast. FINDINGS: For purposes of numbering on this exam, the L5-S1 disc space is assigned to axial image 36 and 38. Th ere are postoperative findings consistent with L4-L5 and L5-S1 discectomies with posterior decompress ion and bilateral pedicle screw fusion from L4 through S1. No intracanalicular mass or fluid collecti on is present. Conus terminates at the L2 level. Paravertebral soft tissues are unremarkable. There i s no lumbar spine fracture. There is no suspicious marrow replacement. L1-2: The central canal and neural foramen are patent. There is mild facet arthrosis. L2-3: There is moderate facet arthrosis. Central canal and neural foramen are patent. L3-4: Note is made of a disc bulge with superimposed right paracentral disc extrusion with superior s ubligamentous migration. Note is made of facet arthrosis with ligamentous hypertrophy. There is moder ate to severe narrowing of the central canal. There is severe narrowing of the bilateral neural cathryn en and lateral recesses. Patent AP diameter of the canal is 7 mm L4-5: There is no residual central canal stenosis status post decompression. Neural foramen are paten t. L5-S1: There is no residual central canal stenosis status post decompression. Neural foramen are subo ptimally assessed due to susceptibility artifact. There is mild to moderate bilateral neural foramina l stenosis. IMPRESSION: 1. Disc bulge and superimposed right paracentral disc extrusion with superior subligamentous migratio n at L3-L4 in addition to facet arthrosis and ligamentous hypertrophy. The findings result in moderat e to severe narrowing of the central canal and severe stenosis of the bilateral lateral recesses and neural foramen. 2. Otherwise patent central canal. 3. Status post L4-S1 discectomies, posterior decompression and bilateral pedicle screw fusion. 4. No lumbar spine fracture. ACT 112: Negative or not required by law. Electronically signed by: Mark Cordova M.D. 04/12/2021 2:44 PM
--- NOTE | 2021-04-12 15:34 | History & Physical Report ---
Date of Service April 12, 2021 Assessment & Plan (1) Spinal stenosis: Plan: Severe symptoms. Able to tolerate pain by sitting down a leaning over but standing up for only short periods causing weakness in her legs. Doubtful benefit of steroids at this stage since it has been slowly progressive. Much worse over the last week. Failed outpatient management with steroids injection by pain management. Pain management with acetaminophen, Toradol and oxycodone. She is low risk candidate for surgery. Medically optimized for surgery at this time pending routine labs and EKG. Consult ortho spine as likely to need operative management. (2) Lumbar disc herniation with radiculopathy: Plan: As above (3) Hyperlipidemia: Plan: Continue pravastatin (4) Hypertension: Plan: Continue amlodipine and lisinopril (5) Urinary, incontinence, stress female: Plan: Noted acute on chronic issue, do not suspect cauda equina Plan: VTE Prophylaxis - low risk Diet - regular, NPO after midnight Disposition - observation status to med/surg Admission and Anticipated Discharge Date Admission Date: Apr 12, 2021 History of Present Illness Chief Complaint: Back pain, leg pain and leg weakness Primary Care Provider: SYLVIA GARDUNO No Manley is a 60 year old female who presents to the ER with mid-low back pain radiating down both legs with associated paresthesias. She has a significant history of lumbar disc herniation with radiculopathy L4-S1 requiring operative treatment with lumbar decompression and posterior spinal fusion L4-5, L5-S1 in 2019. Since her fall in June last year she has been having progressively worsening back pain radiating down both legs; right > left. She underwent lumbar MRI in November with subsequent LESI without any significant relief. She had planned to follow up with Dr Ferguson as an outpatient however her pain has substantially increased over the last week with associated weakness in both legs. She is unable to stand for more than a minute. Pain relieved with sitting and bending forward. No perianal numbness. She has chronic urinary incontinence which has been worse this week. She denies any fever, chills or new trauma in the last few weeks. In the ER thoracic and lumbar MRI confirmed disc bulge superimposed right paracentral disc extrusion with superior subligamentous migration at L3-L4 in addition to facet arthrosis and ligamentous hypertrophy. The findings result in moderate to severe narrowing of the central canal and severe stenosis of the bilateral lateral recesses and neural foramen. ER provider discussed with Dr Ferguson and recommended admission under medicine at this time. Allergies Allergy/AdvReac Type Severity Reaction Status Date / Time latex Allergy Unknown Unknown Verified 04/12/21 15:00 MCCRACKEN CATHETER AdvReac Intermediate EXTREME Uncoded 04/12/21 15:00 ABDOMINAL PAIN Home Medications Medication Instructions Recorded Confirmed Type amlodipine 5 mg tablet 5 mg PO QPM 05/11/19 04/12/21 History coQ10 (ubiquinol) 200 mg capsule 400 mg PO QPM 05/11/19 04/12/21 History lisinopril 40 mg tablet 40 mg PO QPM 05/11/19 04/12/21 History multivitamin 1 tab PO QPM 05/11/19 04/12/21 History pravastatin 20 mg tablet 20 mg PO QPM 05/11/19 04/12/21 History acetaminophen 650 mg 1,300 mg PO Q12H PRN 04/12/21 04/12/21 History tablet,extended release meloxicam 15 mg tablet 15 mg PO PM 04/12/21 04/12/21 History Past Med/Surg History Medical History (Updated 04/12/21 @ 18:03 by Suhail Marquez MD) Arthritis Hx of migraines Hyperlipidemia Hypertension Lumbar disc herniation with radiculopathy Spinal stenosis Urinary, incontinence, stress female Surgical History History of appendectomy History of colonoscopy History of dilatation and curettage History of lumbar surgery History of tonsillectomy and adenoidectomy Hx of cone biopsy of cervix Hx of hysterectomy [place] teeth removed Family History Mother Family history of diabetes mellitus Social History Smoking Status: Never smoker Second Hand Exposure: No; Hx Alcohol Use: No Hx Substance Use: No Preferred Language: Bruneian Communication Ability: Effective Tool Marker Required: No Beliefs That Will Affect Care: None marital status: Current Living Situation: Spouse Feels Safe at Home: Yes Assistive Devices: Walker Review of Systems Review of Systems: All systems reviewed & are unremarkable except as noted in HPI & below Physical Exam Constitutional: WD/WN, vitals as above Eyes: + anicteric sclerae; normal pupil size Respiratory: normal respiratory effort, lungs clear to auscultation Cardiovascular: Rate/Rhythm: regular rate and regular rhythm Heart Sounds: normal S1 and normal S2; no murmur Vessels: posterior tibial pulses present, dorsalis pedis pulses present and radial pulses present Extremities: normal capillary refill; no calf tenderness and no pedal edema Gastrointestinal (Abdomen): Inspection/Auscultation: normal bowel sounds Percussion/Palpation: abdomen soft; abdomen nontender, no guarding and abdomen not rigid Musculoskeletal: no cyanosis or clubbing, extremities motor strength 5/5 Spine: + paraspinal tenderness (bilateral lumbar) and + sacroiliac joint abnormality (right sided tenderness) Skin: no rashes, warm and dry Neurologic: moves all extremities and awake; no focal motor deficits (bilateral foot dorsi/plantarflex 5/5 while sitting) and not confused Psychiatric: A+Ox3, euthymic affect Results & Data Results & Data ([facility]) Vital Signs (Past 12 Hours) Vital Signs Temp Pulse Resp BP Pulse Ox 04/12/21 12:51 14 99 04/12/21 11:51 36.7 C 112 H 18 193/91 H 95 Diagnostic Findings MRI OF THE LUMBAR SPINE WITHOUT CONTRAST CLINICAL HISTORY: mid-lower back pain radiating down buttocks/legs COMPARISON STUDY: Lumbar spine fluoroscopic images June 04, 2019. TECHNIQUE: Utilizing a 1.5 Cecille magnet and dedicated coil, multiplanar, multiecho imaging of the lumbar spine was performed without IV contrast. FINDINGS: For purposes of numbering on this exam, the L5-S1 disc space is assigned to axial image 36 and 38. There are postoperative findings consistent with L4-L5 and L5-S1 discectomies with posterior decompression and bilateral pedicle screw fusion from L4 through S1. No intracanalicular mass or fluid collection is pr esent. Conus terminates at the L2 level. Paravertebral soft tissues are unremarkable. There is no lumbar spine fracture. There is no suspicious marrow replacement. L1-2: The central canal and neural foramen are patent. There is mild facet arthrosis. L2-3: There is moderate facet arthrosis. Central canal and neural foramen are patent. L3-4: Note is made of a disc bulge with superimposed right paracentral disc extrusion with superior subligamentous migration. Note is made of facet arthrosis with ligamentous hypertrophy. There is moderate to severe narrowing of the central canal. There is severe narrowing of the bilateral neural foramen and lateral recesses. Patent AP diameter of the canal is 7 mm L4-5: There is no residual central canal stenosis status post decompression. Neural foramen are patent. L5-S1: There is no residual central canal stenosis status post decompression. Neural foramen are suboptimally assessed due to susceptibility artifact. There is mild to moderate bilateral neural foraminal stenosis. IMPRESSION: 1. Disc bulge and superimposed right paracentral disc extrusion with superior subligamentous migration at L3-L4 in addition to facet arthrosis and ligamentous hypertrophy. The findings result in moderate to severe narrowing of the central canal and severe stenosis of the bilateral lateral recesses and neural foramen. 2. Otherwise patent central canal. 3. Status post L4-S1 discectomies, posterior decompression and bilateral pedicle screw fusion. 4. No lumbar spine fracture. THORACIC SPINE MRI HISTORY: mid-lower back pain radiating down buttocks/legs TECHNIQUE: Multiplanar multisequence MRI of the thoracic spine was performed without the use of contrast. COMPARISON: None. FINDINGS: Mild disc space narrowing at C4-C5, C5-C6, and C6-C7. There is 1 mm of anterolisthesis of C4 on C5 and 1 mm retrolisthesis of C5 on C6. Broad-based posterior disc bulge at C5-C6 results in mild central canal narrowing at this level. There is moderate to severe disc space narrowing from T3 through L1 consistent with degenerative change. There are tiny endplate osteophytes within the majority of the thoracic spine. The thoracic spinal cord demonstrates a normal course, caliber, and signal intensity. There are small broad-based posterior disc bulges from C3 through L1 resulting in multilevel mild central canal narrowing. Multilevel bilateral neural foraminal narrowing within the mid to lower thoracic spine due to the disc bulges. No areas of high-grade central canal stenosis. Paravertebral soft tissues are unremarkable. Mild endplate degenerative changes within the lower thoracic spine. No fracture or subluxation. IMPRESSION: 1. No fracture or subluxation within the thoracic spine. 2. Moderate to severe disc space narrowing from T3 through L1 with broad-based posterior disc bulges resulting in multilevel mild central canal and mild bilateral neural foraminal narrowing. No high-grade central canal stenosis within the thoracic spine Medications Administered ER Medications Given: Solu-medrol 40mg IV Cyclobenzaprine 10mg PO Ketorolac 30mg IV Code Status & VTE Plan Code Status Full VTE Prophylaxis Plan VTE Prophylaxis will be ordered: Yes Reason for no VTE drug order: Treatment not indicated PG Care Time/CCT Total # of Minutes Spent Total Time Spent with Patient: Total time spent is greater than 50% in coordination of care (as documented) at patient's floor/unit and/or counseling patient: Coding Level of Care Code INT OBSERVATION CARE 50M LVL 2 Diagnoses Spinal stenosis M48.00 Lumbar disc herniation with radiculopathy M51.16 Hyperlipidemia E78.5 Hypertension I10 Urinary, incontinence, stress female N39.3
[2021-04-12] MEDS ORDERED: CYCLOBENZAPRINE HCL 10 MG TAB PO PRN (17:46)
[2021-04-12] MEDS ORDERED: oxyCODONE HCL IR 5 MG TAB (IMMEDIATE RELEASE) PO PRN (17:46)
[2021-04-12 18:36] LABS: Basophils # (auto) 0.01 K/uL (0-0.2); Basophils % (auto) 0.1 %; Hematocrit (blood only) 43.6 % (37-47); Hemoglobin 15.1 g/dL (12.0-16.0); Immature Granulocytes # (auto) 0.01 K/uL (0.00-0.02); Immature Granulocytes % (auto) 0.1 %; Lymphocytes # (auto) 0.69 K/uL (1.2-3.4); Lymphocytes % (auto) 7.4 %; Mean Corpuscular Hemoglobin 33.6 pg (25-34); Mean Corpuscular Hgb Conc 34.6 g/dL (32-36); Mean Corpuscular Volume 96.9 fL (80-100); Mean Platelet Volume 10.8 fL (7.4-10.4); Monocytes # (auto) 0.06 K/uL (0.11-0.59); Monocytes % (auto) 0.6 %; Neutrophils # (auto) 8.59 K/uL (1.4-6.5); Neutrophils % (auto) 91.8 %; Platelet Count 287 K/uL (130-400); RDW Coefficient of Variation 12.8 % (11.5-14.5); RDW Standard Deviation 45.2 fL (36.4-46.3); White Blood Count 9.36 K/uL (4.8-10.8)
[2021-04-12 18:54] LABS: BUN Creatinine Ratio 23.9 (10-20); Calcium 9.5 mg/dl (8.5-10.1); Creatinine Clr Calc Pharmacy 95.9 ml/min; Est GFR (African American) 112.3 ml/min; Est GFR (Non-African American) 96.9 ml/min; Potassium 4.1 mmol/L (3.5-5.1)
[2021-04-12] MEDS ORDERED: NON-FORMULARY MEDICATION (Coq10 (Ubiquinol) 200 mg Capsule) PO SCH (21:00)
[2021-04-12] MEDS: MULTIVITAMIN TAB PO SCH (21:23)
[2021-04-12] MEDS: amLODIPine BESYLATE 5 MG TAB PO SCH (21:23)
[2021-04-12] MEDS: PRAVASTATIN SOD 20 MG TAB PO SCH (21:23)
[2021-04-12] MEDS: lisinopril 40 MG TAB PO SCH (21:23)
--- NOTE | 2021-04-13 07:57 | Orthopedic Consultation ---
Date of Consultation April 13, 2021 Assessment & Plan (1) Neurogenic claudication due to lumbar spinal stenosis: MRI lumbar spine from yesterday demonstrates evidence of marked facet hypertrophy consistent with instability as there is fluid within the joint as well as a massive disc condition extending up into the L3-L4 level and foramina on the right. This is causing significant neural compression. Assessment spinal stenosis with lumbar disc herniation and radiculopathy with neuro deficit. Plan in light of this patient's presentation gross weakness and inability ambulate and recommending emergent decompression fusion L3-L4 with removal instrumentation L4-S1. Risk benefits pros cons alternatives were outlined in detail. Patient will be made n.p.o. we will plan for surgery today. History of Present Illness Reason for Consultation: Leg pain and weakness Attending Physician: Suhail Marquez MD History of Present Illness This is a 60-year-old female presents with significant worsening of her right leg pain and inability to ambulate. Pain became incapacitating weakness concerning and came to the emergency room yesterday. She was admitted for pain control and evaluation. This morning she is able to sit beside the bed she is tearful. Pain is described rating in the right buttock anterior thigh to the knee. Left leg is less symptomatic but still painful. States the pain has been progressive the past several months the point is intolerable. She states she is been crawling at home to get around her house. Allergies Allergy/AdvReac Type Severity Reaction Status Date / Time latex Allergy Unknown Unknown Verified 04/12/21 15:00 [employer]ACK[employer] CATHETER AdvReac Intermediate EXTREME Uncoded 04/12/21 15:00 ABDOMINAL PAIN Home Medications Medication Instructions Recorded Confirmed Type amlodipine 5 mg tablet 5 mg PO QPM 05/11/19 04/12/21 History coQ10 (ubiquinol) 200 mg capsule 400 mg PO QPM 05/11/19 04/12/21 History lisinopril 40 mg tablet 40 mg PO QPM 05/11/19 04/12/21 History multivitamin 1 tab PO QPM 05/11/19 04/12/21 History pravastatin 20 mg tablet 20 mg PO QPM 05/11/19 04/12/21 History acetaminophen 650 mg 1,300 mg PO Q12H PRN 04/12/21 04/12/21 History tablet,extended release meloxicam 15 mg tablet 15 mg PO PM 04/12/21 04/12/21 History Patient History Medical History (Updated 04/13/21 @ 07:56 by David Ferguson DO) Arthritis Hx of migraines Hyperlipidemia Hypertension Lumbar disc herniation with radiculopathy Spinal stenosis Urinary, incontinence, stress female Surgical History History of appendectomy History of colonoscopy History of dilatation and curettage History of lumbar surgery History of tonsillectomy and adenoidectomy Hx of cone biopsy of cervix Hx of hysterectomy [place] teeth removed Family History Mother Family history of diabetes mellitus Social History Smoking Status: Never smoker Second Hand Exposure: No; Do You Dip or Chew Tobacco: No; Hx Alcohol Use: No Hx Substance Use: No Preferred Language: Ecuadorean Communication Ability: Effective Bag Printer Required: No Beliefs That Will Affect Care: None marital status: Current Living Situation: Spouse Other Information That Helps Us Care for You: No Feels Safe at Home: Yes Assistive Devices: None Physical Exam Physical Exam: On exam she is able to sit beside the bed she is tearful. She is unable to stand without marked assistance as her right leg gives way. On exam she has 4-/5 right quadriceps with a 5 or 5 on the left. Plantar flexion dorsiflexion appears asymmetric intact bilaterally. There is marked sensory deficits to cold and light touch along the right compared to left. Deep tendon reflexes absent. Results & Data ([facility]) Vital Signs (Past 12 Hours) Vital Signs Temp Pulse Pulse Resp BP Pulse Ox 04/12/21 23:10 36.4 C L 92 H 16 126/80 92 04/12/21 21:22 92 H 123/77
[2021-04-13] MEDS ORDERED: MIDAZOLAM HCL 1 MG/ML 2ML VIAL ONE (12:03)
[2021-04-13] MEDS ORDERED: fentaNYL citrate 100 MCG/2 ML VIAL ONE (12:03)
--- NOTE | 2021-04-13 12:10 | Anesthesiology Consultation ---
Date of Service April 13, 2021 Assessment & Plan (1) Encounter for pre-operative examination: Chart Review Chart Review: Acceptable Risk for Surgery and Patient NOT seen in Pre Admission Testing Consults Requested none History Surgery Operation Date: 04/13/21 13:45 Proposed Procedures p L3-L4 Lumbar Decompression Fusion - David Ferguson DO Height/Weight Height: 5 ft Weight: 97.6 kg Allergies Allergy/AdvReac Type Severity Reaction Status Date / Time latex Allergy Unknown Unknown Verified 04/12/21 15:00 MCCRACKEN CATHETER AdvReac Intermediate EXTREME Uncoded 04/12/21 15:00 ABDOMINAL PAIN Medications Home Medications Medication Instructions Recorded Confirmed Last Taken amlodipine 5 mg tablet 5 mg PO QPM 05/11/19 04/12/21 04/11/21 coQ10 (ubiquinol) 200 mg capsule 400 mg PO QPM 05/11/19 04/12/21 04/11/21 lisinopril 40 mg tablet 40 mg PO QPM 05/11/19 04/12/21 04/11/21 multivitamin 1 tab PO QPM 05/11/19 04/12/21 04/11/21 pravastatin 20 mg tablet 20 mg PO QPM 05/11/19 04/12/21 04/11/21 acetaminophen 650 mg 1,300 mg PO Q12H PRN 04/12/21 04/12/21 04/11/21 tablet,extended release 1300 mg meloxicam 15 mg tablet 15 mg PO PM 04/12/21 04/12/21 04/11/21 Active Medications Generic Name Dose Route Start Last Admin Trade Name Freq PRN Reason Stop Dose Admin Amlodipine Besylate 5 mg 04/12/21 21:00 04/12/21 21:23 Amlodipine Besylate 5 Mg Tab PO 05/12/21 20:59 5 mg QPM SARA Administration Lisinopril 40 mg 04/12/21 21:00 04/12/21 21:23 Lisinopril 40 Mg Tab PO 05/12/21 20:59 40 mg QPM SARA Administration Multivitamins 1 tab 04/12/21 21:00 04/12/21 21:23 Multivitamin Tab PO 05/12/21 20:59 1 tab QPM SARA Administration Pravastatin Sodium 20 mg 04/12/21 21:00 04/12/21 21:23 Pravastatin Sod 20 Mg Tab PO 05/12/21 20:59 20 mg QPM SARA Administration NPO Date Last Intake of Fluids: 04/12/21 Date Last Intake of Solids: 04/12/21 Past Medical History Medical History Arthritis Hx of migraines Hyperlipidemia Hypertension Lumbar disc herniation with radiculopathy Spinal stenosis Urinary, incontinence, stress female Past Family History Family History Mother Family history of diabetes mellitus Past Surgical History Surgical History History of appendectomy History of colonoscopy History of dilatation and curettage History of lumbar surgery History of tonsillectomy and adenoidectomy Hx of cone biopsy of cervix Hx of hysterectomy [place] teeth removed Social History Smoking Status: Never smoker Do You Dip or Chew Tobacco: No Hx Alcohol Use: No Hx Substance Use: No Physical Exam Vital Signs Last Vital Signs Temp 97.9 F 04/13/21 09:09 Pulse 82 04/13/21 09:09 Resp 16 04/13/21 09:09 BP 138/83 04/13/21 09:09 Pulse Ox 96 04/13/21 09:09 Testing Laboratory Results 04/12/21 18:24 04/12/21 18:24 Electrocardiogram Date: 04/12/21 Findings: + NSR @
--- NOTE | 2021-04-13 12:22 | Hospitalist Progress Note ---
Date of Service April 13, 2021 Assessment & Plan (1) Spinal stenosis: Plan: - Severe symptoms. Able to tolerate pain by sitting down and leaning over but standing up for only short periods causing weakness in her legs; worsening over past week. -- Failed outpatient management with steroid injections with pain management -- Was awaiting appointment for her back but wasn't until 04/30 - Doubtful benefit of steroids at this stage since it has been slowly progress venessa -- will hold on pre-operative steroids - Pain control with PRN Oxy and PRN Cyclobenzaprine - Ortho Spine consulted - -- MRI shows evidence of marked facet hypertrophy consistent with instability as there is fluid within the join as well as a massive disc condition extending up into the L3-L4 level and foramina on the right causing significant neural compression -- Dr. Ferguson recommending emergent decompression/fusion of L3-L4 with removal of instrumentation of L4-S1 possibly today (2) Lumbar disc herniation with radiculopathy: Plan: - With neurogenic claudication; As above (3) Hyperlipidemia: Plan: - Continue pravastatin 20 mg daily (4) Hypertension: Plan: - Continue amlodipine 5 mg daily and lisinopril 40 mg daily (5) Urinary, incontinence, stress female: Plan: - Noted acute on chronic issue, do not suspect cauda equina Plan: Await surgical intervention and recovery Admission and Anticipated Discharge Date Admission Date: April 13, 2021 Subjective No acute events overnight. Reports ongoing back pain but is tolerable at the moment. She is anticipating emergent surgery this afternoon. She has been NPO. No CP, SOB, H/O DVT/PE. No numbness/tingling Review of Systems Review of Systems: All systems reviewed & are unremarkable except as noted in Subjective Physical Exam Physical Exam: PHYSICAL EXAM General Appearance: WDWN in NAD who is A&O x 3 HEENT: Head is normocephalic/atraumatic; Hearing grossly intact; Mucous membranes moist Neck: Supple; Trachea midline; Neg JVD Heart: RRR with no M/G/R Lungs: CTA in all lung bond bilaterally; Respirations unlabored; Neg accessory muscle use Abdomen: Soft, non-tender, non-distended; Positive BS x 4 quadrants Extremities: Neg cyanosis or edema Neurological: Speech clear; Gross motor/sensory function intact; Neg focal neurologic deficits Psychiatric: Appropriate mood/affect Skin: Normal Color; Warm/Dry Results & Data Results & Data ([facility]) Vital Signs (Past 12 Hours) Vital Signs Temp Pulse Resp BP Pulse Ox 04/13/21 09:09 36.6 C 82 16 138/83 96 PG Care Time/CCT Total # of Minutes Spent Total Time Spent with Patient: Total time spent is greater than 50% in coordination of care (as documented) at patient's floor/unit and/or counseling patient: Coding Level of Care Code 91724 Subseq Hosp Care Lvl 3 Diagnoses Spinal stenosis M48.00 Lumbar disc herniation with radiculopathy M51.16 Hyperlipidemia E78.5 Hypertension I10 Urinary, incontinence, stress female N39.3
--- NOTE | 2021-04-13 12:55 | Electrocardiogram Report ---
Test Reason : Blood Pressure : / mmHG Vent. Rate : 101 BPM Atrial Rate : 101 BPM P-R Int : 168 ms QRS Dur : 092 ms QT Int : 364 ms P-R-T Axes : 053 036 031 degrees QTc Int : 471 ms Sinus tachycardia Otherwise normal ECG When compared with ECG of 17-MAY-2019 10:33, Premature atrial complexes are no longer Present Confirmed by Rene Quinones ([id number]) on 04/13/2021 12:55:43 PM Referred By: REFERRED SELF Confirmed By:Rene Quinones
[2021-04-13] MEDS ORDERED: ePHEDrine sulfate 50 MG/ML AMP IV PRN (14:50)
[2021-04-13] MEDS ORDERED: fentaNYL citrate 100 MCG/2 ML VIAL IV PRN (14:50)
[2021-04-13] MEDS ORDERED: ATROPINE SULFATE 0.1 MG/ML 10ML SYR IV PRN (14:50)
[2021-04-13] MEDS ORDERED: ONDANSETRON INJ 2 MG/ML 2 ML VIAL IV PRN ×2 (14:50→20:11)
[2021-04-13] MEDS ORDERED: LIDOCAINE 2% 2 ML VIAL/AMP(20MG/ML) INFIL ONE (15:50)
[2021-04-13] MEDS ORDERED: LIDOCAINE 2% 20 MG/ML 5 ML SYR IV ONE (15:50)
[2021-04-13] MEDS ORDERED: ROCURONIUM BROMIDE 10 MG/ML 5 ML VIAL IV ONE (15:50)
[2021-04-13] MEDS ORDERED: PROPOFOL IV EMULSION 10 MG/ML 20 ML VIAL IV ONE (15:50)
[2021-04-13] MEDS ORDERED: ceFAZolin 2,000 MG/15 ML IV PUSH IV ONE (16:37)
[2021-04-13] MEDS ORDERED: ceFAZolin 2000MG 2,000 MG/15 ML SYR IV ONE (16:42)
[2021-04-13] MEDS ORDERED: BUPIVACAINE/EPINEPHRINE 0.25% 1:200,000 30 ML VIAL ONE (16:49)
[2021-04-13] MEDS ORDERED: HYDROmorphone INJ 2 MG/ML SYR/VIAL ONE (17:31)
[2021-04-13] MEDS ORDERED: CLINDAMYCIN PHOS 300 MG/2 ML VIAL ONE (17:33)
[2021-04-13] MEDS ORDERED: FLOSEAL HEMOSTATIC MATRIX 10ML TOP ONE (17:55)
[2021-04-13] MEDS ORDERED: CLINDAMYCIN 600 MG/54 ML BAG IV ONE (18:32)
[2021-04-13] MEDS ORDERED: FLOSEAL HEMOSTATIC MATRIX 5ML TOP ONE (18:55)
[2021-04-13] MEDS: ceFAZolin 330 MG/ML 1 GM VIAL ONE ×2 (19:05→19:23)
--- NOTE | 2021-04-13 19:28 | Operative Report ---
Post Operative Report Pre & Post Diagnosis Operation Date: 04/13/21 13:45 Pre-Op Diagnosis: neurogenic claudication due to lumbar spinal stenosis Post-Op Diagnosis: neurogenic claudication due to lumbar spinal stenosis I identified the patient and participated in the time-out.: Yes Procedure Operation Date: 04/13/21 13:45 Actual Procedures #1 removal of posterior instrumentation L4-S1. #2 exploration of fusion L4-S1. #3 lumbar decompression with bilateral medial facetectomies and foraminotomies L2-L3 and L3-L4. #4 posterior spinal fusion L3-L4. #5 placement posterior instrumentation L3-S1. #6 interbody fusion L3-L4. #7 placement of peek cage 14 x 22 mm at L3-L4. #8 placement locally harvested morselized autograft in the posterior gutters. #9 placement infuse collagen sponge, master graft in the posterior lateral gutters and I factor and interbody space. Surgeon David Ferguson, DO Magento Developer None Estimated Blood Loss 250 Findings See Below The patient is 5 foot tall weighing over 97 kg with a BMI of 42. The patient's body habitus did contribute to significant technical difficulty requiring her deepest retractors longus instruments in order to perform her procedure. This had at least 50% increased operative time. Specimens None Indications This is a 60-year-old female presents with marked decline in status over the past few days now with inability to ambulate. It affects her right quadricep with a 4-/5 strength that has been worsening over the past day. Subsequently we decided on an emergent decompression fusion to halt progressive neuro damage. Description of Procedure Patient was met with identified informed consent obtained. Patient was then taken to the operative suite underwent a patient placed in a prone position the chest table top [place] frame. All bony prominences well-padded eyes inspected to ensure no external pressure placed upon the bed this point the lumbar spine is prepped and draped in normal sterile fashion. Sharp dissection with the assistance of Bovie cautery was performed down to and exposing the lamina and transverse processes of L3 and instrumentation at L4-L5 and S1 levels bilaterally. And remove the instrumentation at L4-L5 and S1 levels bilaterally explore the fusion mass noting it to be intact. Informed complete laminectomy of L3 partial laminectomy L2 including bilateral medial facetectomies and foraminotomies addressing severe spinal stenosis. Pedicle screws then placed in L3-L4 and S1 levels bilaterally with assistance of fluoroscopy and proper sized jaret placed. By way of a transfemoral approach on the right complete discectomy of L3-L4 was performed endplates curetted to subcortical mean bone and a 14 x 22 mm peek cage filled I factor tapped in position. The rods were then compressed locked in final position bilaterally. The transverse processes of L3 and L4 bu rred to subcortically bone. Infuse collagen sponge master graft local autograft was placed in the posterior gutters. 15 round SANDRA drain inserted. The incision was then closed with 1 Vicryl in the fascia 2-0 Vicryl subcutaneously and 4 Monocryl for final skin closure. Steri-Strip sterile dressings placed. Patient will continue PACU stable condition. Please note spinal cord monitoring was utilized at the procedure no changes noted. I attest to the content of the Intraoperative Record and any orders documented therein. Any exceptions are noted below.
--- NOTE | 2021-04-13 19:52 | Fluoroscopy Report ---
FL lumbar spine 2-3V CLINICAL HISTORY: L3-4 D/F/I TECHNIQUE: 3 views were obtained with the C-arm in the OR with the above procedure. Total fluoroscopy time was 2.5 seconds. Total skin dose was 11.1 mGy. Comparison: None available at the time of this dictation. FINDINGS/IMPRESSION: Intraoperative images were obtained of L3-L4 decompression and fusion. Please correlate with intraoperative fluoroscopy and operative report. ACT 112: Negative or not required by law. Electronically signed by: Manan Masters M.D. 04/13/2021 7:51 PM
[2021-04-13] MEDS ORDERED: METOCLOPRAMIDE HCL INJ 5 MG/ML 2 ML VIAL IV PRN (20:11)
[2021-04-13] MEDS: SODIUM CHLORIDE 0.9% 1000ML 1,000 ML IV SCH (20:11)
[2021-04-13] MEDS ORDERED: ACETAMINOPHEN 500 MG TAB PO PRN (20:11)
[2021-04-13] MEDS ORDERED: SOD PHOSPHATE/SOD BIPHOSPHATE ENEMA 132 ML BTL PR PRN (20:11)
[2021-04-13] MEDS ORDERED: MAGNESIUM HYDROXIDE SUSP 30 ML UDC PO PRN (20:11)
[2021-04-13] MEDS ORDERED: DO NOT ADMINISTER PNEUMOCOCCAL VACCINE PRN (20:11)
[2021-04-13] MEDS ORDERED: NALOXONE HCL 0.4 MG/1 ML VIAL/CARP IV PRN (20:11)
[2021-04-13] MEDS ORDERED: LORazepam 2 MG/1 ML VIAL IV PRN (20:11)
[2021-04-13] MEDS ORDERED: ONDANSETRON 4 MG OD TAB PO PRN (20:11)
[2021-04-13] MEDS ORDERED: ALUMINUM/MAGNESIUM SUSP 30 ML UDC PO PRN (20:11)
[2021-04-13] MEDS ORDERED: HYDROmorphone INJ 1 MG/ML SYRINGE IV PRN (20:11)
[2021-04-13] MEDS ORDERED: diphenhydrAMINE Capsule 25 MG CAP PO PRN (20:11)
[2021-04-13] MEDS ORDERED: PROMETHAZINE HCL 12.5 MG in SODIUM CHLORIDE 0.9% 50 ML IV PRN (20:11)
[2021-04-13] MEDS ORDERED: bisacodyL 10 MG SUPP PR PRN (20:11)
[2021-04-13] MEDS ORDERED: LORazepam 0.5 MG TAB PO PRN (20:11)
[2021-04-13] MEDS ORDERED: ACETAMINOPHEN 1,000 MG/100 ML VIAL IV PRN (20:11)
[2021-04-13] MEDS ORDERED: traMADol HCL 50 MG TABLET PO PRN (20:11)
[2021-04-13] MEDS ORDERED: DO NOT ADMINISTER FLU VACCINE PRN (20:11)
[2021-04-13] MEDS ORDERED: FAMOTIDINE 20 MG TAB PO PRN (20:11)
[2021-04-13] MEDS ORDERED: hydrOXYzine HCl 25 MG TAB PO PRN (20:11)
[2021-04-13] MEDS: PRAVASTATIN SOD 20 MG TAB PO SCH (20:56)
[2021-04-13] MEDS: lisinopril 40 MG TAB PO SCH (20:56)
[2021-04-13] MEDS: amLODIPine BESYLATE 5 MG TAB PO SCH (20:56)
[2021-04-13] MEDS: MULTIVITAMIN TAB PO SCH (20:56)
[2021-04-13] MEDS: HYDROmorphone INJ 0.5 MG/0.5 ML SYR IV PRN (20:57)
[2021-04-13] MEDS: DOCUSATE SODIUM/SENNA 50/8.6MG TAB PO SCH (21:02)
--- NOTE | 2021-04-13 22:28 | Anesthesiology Progress Note ---
Date of Service April 13, 2021 Anesthesia Post Procedure Vital Signs Vital Signs: Temp Pulse Pulse Pulse Resp BP BP 04/13/21 21:00 36.5 C 79 18 122/81 04/13/21 20:30 36.6 C 103 H 18 125/77 04/13/21 20:15 36.5 C 105 H 18 146/87 H 04/13/21 20:05 36.9 C 91 H 20 140/93 04/13/21 19:55 91 H 18 160/86 H 04/13/21 19:45 91 H 15 159/83 H 04/13/21 19:35 36.5 C 103 H 19 146/95 H 04/13/21 14:26 36.7 C 92 H 18 141/83 H 04/13/21 09:09 36.6 C 82 16 138/83 04/12/21 23:10 36.4 C L 92 H 16 126/80 Pulse Ox 04/13/21 21:00 94 04/13/21 20:30 91 04/13/21 20:15 92 04/13/21 20:05 96 04/13/21 19:55 99 04/13/21 19:45 100 04/13/21 19:35 98 04/13/21 14:26 98 04/13/21 09:09 96 04/12/21 23:10 92 Pain Intensity Lower Back: Pain Intensity: 7 Transfer of Care Handoff Completed per policy Notes Mental Status: alert / awake / arousable and participated in evaluation Patient Amnestic to Procedure: Yes Nausea / Vomiting: adequately controlled Pain: adequately controlled Airway Patency, RR, SpO2: stable & adequate BP & HR: stable & adequate Hydration State: stable & adequate Anesthetic Complications: no major complications apparent and Pt Satisfied with anesthetic care
[2021-04-14] MEDS: CLINDAMYCIN 600 MG in DEXTROSE 5% 50 ML IV SCH ×2 (01:51→10:01)
[2021-04-14] MEDS: SODIUM CHLORIDE 0.9% 1000ML 1,000 ML IV SCH (04:45)
[2021-04-14] MEDS: HYDROmorphone INJ 0.5 MG/0.5 ML SYR IV PRN (06:30)
[2021-04-14] MEDS: POLYETHYLENE (MIRALAX) 17 GM PACK PO SCH ×4 (06:30→23:29)
[2021-04-14 06:44] LABS: Basophils # (auto) 0.01 K/uL (0-0.2); Basophils % (auto) 0.1 %; Hematocrit (blood only) 38.5 % (37-47); Immature Granulocytes # (auto) 0.04 K/uL (0.00-0.02); Immature Granulocytes % (auto) 0.3 %; Lymphocytes # (auto) 1.32 K/uL (1.2-3.4); Lymphocytes % (auto) 8.6 %; Mean Corpuscular Hemoglobin 33.6 pg (25-34); Mean Corpuscular Hgb Conc 33.8 g/dL (32-36); Mean Corpuscular Volume 99.5 fL (80-100); Mean Platelet Volume 10.8 fL (7.4-10.4); Monocytes # (auto) 1.23 K/uL (0.11-0.59); Neutrophils # (auto) 12.68 K/uL (1.4-6.5); Platelet Count 267 K/uL (130-400); RDW Coefficient of Variation 13.2 % (11.5-14.5); RDW Standard Deviation 47.9 fL (36.4-46.3); Red Blood Count 3.87 M/uL (4.2-5.4); White Blood Count 15.28 K/uL (4.8-10.8)
[2021-04-14 07:05] LABS: BUN Creatinine Ratio 26.5 (10-20); Calcium 9.5 mg/dl (8.5-10.1); Creatinine Clr Calc Pharmacy 94.4 ml/min; Est GFR (African American) 111.8 ml/min; Est GFR (Non-African American) 96.4 ml/min; Potassium 4.2 mmol/L (3.5-5.1)
[2021-04-14] MEDS: dexAMETHasone 6 MG in SYRINGE 0 ML IV SCH (10:01)
[2021-04-14] MEDS: oxyCODONE HCL IR 5 MG TAB (IMMEDIATE RELEASE) PO PRN ×3 (10:53→21:52)
--- NOTE | 2021-04-14 11:57 | Orthopedic Progress Note ---
Date of Service April 14, 2021 Assessment & Plan (1) Neurogenic claudication due to lumbar spinal stenosis: Plan: This time we will continue physical therapy monitor SANDRA output hopefully discharge home in the next few days. Admission and Anticipated Discharge Date Admission Date: April 13, 2021 Subjective Back pain controlled leg pain markedly improved Physical Exam Physical Exam: Patient is in a chair at the bedside. Has good strength testing. Results & Data ([facility]) Vital Signs (Past 12 Hours) Vital Signs Temp Pulse Resp BP Pulse Ox 04/14/21 11:00 37.6 C H 109 H 18 110/73 95 04/14/21 07:29 36.5 C 84 16 116/70 95 04/14/21 03:00 36.6 C 85 14 115/60 92
--- NOTE | 2021-04-14 17:30 | Hospitalist Progress Note ---
Date of Service April 14, 2021 Assessment & Plan (1) Spinal stenosis: Plan: - On admission -- Severe symptoms. Able to tolerate pain by sitting down and leaning over but standing up for only short periods causing weakness in her legs; worsening over past week. -- Failed outpatient management with steroid injections with pain management -- Was awaiting appointment for her back but wasn't until 04/30 - Doing extremely well post-operatively and ambulating with a walker. Able to move and ambulate much better and for longer periods of time - Pain and bowel regimen - Ortho Spine consulted - discussed with Dr. Ferguson today -- MRI shows evidence of marked facet hypertrophy consistent with instability as there is fluid within the join as well as a massive disc condition extending up into the L3-L4 level and foramina on the right causing significant neural compression -- Dr. Ferguson recommending emergent decompression/fusion of L3-L4 with removal of instrumentation of L4-S1 which was completed on 04/13; EBL 250 mL (2) Lumbar disc herniation with radiculopathy: Plan: - With neurogenic claudication; As above (3) Hyperlipidemia: Plan: - Continue pravastatin 20 mg daily (4) Hypertension: Plan: - Continue amlodipine 5 mg daily and lisinopril 40 mg daily (5) Urinary, incontinence, stress female: Plan: - Noted acute on chronic issue, do not suspect cauda equina Plan: Await surgical intervention and recovery. Possible D/C Admission and Anticipated Discharge Date Admission Date: April 13, 2021 Subjective No acute events overnight. Reports pain is much better today and able to stand and ambulate easier and longer compared to before surgery. She is tolerating a diet. Labs are acceptable. She is having some leaking around her SANDRA drain which is to be expected but will monitor. She verbalizes no new complaints Review of Systems Review of Systems: All systems reviewed & are unremarkable except as noted in Subjective Physical Exam Physical Exam: PHYSICAL EXAM General Appearance: WDWN in NAD who is A&O x 3 HEENT: Head is normocephalic/atraumatic; Hearing grossly intact; Mucous membranes moist Neck: Supple; Trachea midline; Neg JVD Heart: RRR with no M/G/R Lungs: CTA in all lung bond bilaterally; Respirations unlabored; Neg accessory muscle use Abdomen: Soft, non-tender, non-distended; Positive BS x 4 quadrants Extremities: Neg cyanosis or edema; ambulating with walker with steady gait and no LOB; SANDRA drain present to back with surgical dressing in place Neurological: Speech clear; Gross motor/sensory function intact; Neg focal neurologic deficits Psychiatric: Appropriate mood/affect Skin: Normal Color; Warm/Dry Results & Data Results & Data ([facility]) Vital Signs (Past 12 Hours) Vital Signs Temp Pulse Resp BP BP Pulse Ox 04/14/21 14:14 36.9 C 97 H 16 128/80 97 04/14/21 11:00 37.6 C H 109 H 18 110/73 95 04/14/21 07:29 36.5 C 84 16 116/70 95 PG Care Time/CCT Total # of Minutes Spent Total Time Spent with Patient: Total time spent is greater than 50% in coordination of care (as documented) at patient's floor/unit and/or counseling patient: Coding Level of Care Code 86976 Subseq Hosp Care Lvl 3 Diagnoses Spinal stenosis M48.00 Lumbar disc herniation with radiculopathy M51.16 Hyperlipidemia E78.5 Hypertension I10 Urinary, incontinence, stress female N39.3
[2021-04-14] MEDS: DOCUSATE SODIUM/SENNA 50/8.6MG TAB PO SCH (20:05)
[2021-04-14] MEDS: PRAVASTATIN SOD 20 MG TAB PO SCH (20:06)
[2021-04-14] MEDS: amLODIPine BESYLATE 5 MG TAB PO SCH (20:06)
[2021-04-14] MEDS: MULTIVITAMIN TAB PO SCH (20:06)
[2021-04-14] MEDS: lisinopril 40 MG TAB PO SCH (20:06)
[2021-04-15] MEDS: POLYETHYLENE (MIRALAX) 17 GM PACK PO SCH ×2 (06:17→13:19)
[2021-04-15] MEDS: dexAMETHasone 6 MG in SYRINGE 0 ML IV SCH (09:07)
--- NOTE | 2021-04-15 14:14 | Discharge Summary ---
Date of Service April 15, 2021 Admission HPI Per Admitting Provider No Manley is a 60 year old female who presents to the ER with mid-low back pain radiating down both legs with associated paresthesias. She has a significant history of lumbar disc herniation with radiculopathy L4-S1 requiring operative treatment with lumbar decompression and posterior spinal fusion L4-5, L5-S1 in 2019. Since her fall in June last year she has been having progressively worsening back pain radiating down both legs; right > left. She underwent lumbar MRI in November with subsequent LESI without any significant relief. She had planned to follow up with Dr Ferguson as an outpatient however her pain has substantially increased over the last week with associated weakness in both legs. She is unable to stand for more than a minute. Pain relieved with sitting and bending forward. No perianal numbness. She has chronic urinary incontinence which has been worse this week. She denies any fever, chills or new trauma in the last few weeks. In the ER thoracic and lumbar MRI confirmed disc bulge superimposed right paracentral disc extrusion with superior subligamentous migration at L3-L4 in addition to facet arthrosis and ligamentous hypertrophy. The findings result in moderate to severe narrowing of the central canal and severe stenosis of the bilateral lateral recesses and neural foramen. ER provider discussed with Dr Ferguson and recommended admission under medicine at this time. Principal Diagnosis Lumbar spinal stenosis with radiculopathy Discharge Data Allergies Allergy/AdvReac Type Severity Reaction Status Date / Time latex Allergy Unknown Unknown Verified 04/12/21 15:00 cefadroxil Allergy Hives Verified 04/13/21 16:53 [employer] AdvReac Intermediate EXTREME Uncoded 04/12/21 15:00 ABDOMINAL PAIN Consultations 04/12/21 15:27 ED Decision to Admit Stat 04/12/21 17:46 Consult Orthopedic Surgery Routine Procedures Performed Operation Date: 04/13/21 13:45 Actual Procedures p L3-L4 Lumbar Decompression, L3-S1 Spinal Fusion, L3-L4 Interbody Cage, Spinal Cord Monitoring(Not Applicable) - David Ferguson, DO Ordered Studies 04/12/21 12:11 MR thoracic spine wo con Stat 04/12/21 12:12 MR lumbar spine wo con Stat 04/13/21 15:00 [place] lumbar spine 2-3V Routine Hospital Course (1) Neurogenic claudication due to lumbar spinal stenosis: Patient was admitted with severe back and leg pain with inability ambulate with subsequent taken the OR urgently the next day. She tolerated procedure well was taken orthopedic floor postoperative. Postop day 1 she was up and ambulating progressed to postop day #2. She is noting marked improvement of her leg strength and and pain. Subsequently she was discharged home. Discharge orders instructions were on the chart for further review. Total Time Total Time Spent Total Time Spent (In Minutes): 20 minutes Discharge Plan Discharge Items Patient Disposition: Home - Self-Care Reason For Visit: SEVERE CENTRAL CANAL STENOSIS Discharge Diagnosis: Lumbar spinal stenosis with neurogenic claudication Activity: As commented below Non-emergency contact: Primary Care Provider Call non-emergency contact if: you have any medication questions Follow-up/Referrals: David Ferguson DO [Surgeon] - 04/30/21 12:00 pm Courtney Campbell PA-C [Primary Care Provider] - Diet: Regular Addtl Attending Provider Instructions: ACTIVITY RECOMMENDATIONS: SELF CARE INSTRUCTIONS AFTER THORACIC/LUMBAR FUSIONS 1. You may walk to your tolerance. It is good exercise for your legs and back. Expect some back and intermittent leg aches and pains. 2. You may perform "counter-top" level activities (make a sandwich, marce with a project, etc.). 3. No bending or lifting of more than 10 pounds or back twisting of any nature (roll like a log when turning in bed). 4. You may ride in a car for 20-30 minutes at a time. No driving until after your first visit with your doctor. 5. Frequent changes of position and restricting sitting to 30 minutes at a time will help limit the amount of back spasms and stiffness you may experience. 6. You may discontinue the use of ambulatory aids (cane, crutches, etc.) once your strength and confidence allow. 7. You may furniture painter the shower and let water strike your incision when you arrive home at least once daily. Do not take a tub bath, sit in a hot tub or go into a swimming pool until after your first recheck in the office. SPECIAL CARE INSTRUCTIONS: VERY IMPORTANT TO READ AND REVIEW A. Your surgical incision has been closed with a cosmetic suture under the skin that will dissolve in about 6 weeks. In 14 days, you can use a pair of clean scissors and cut the suture that is left outside of the skin at the ends of your incision. 1. The small skin tapes can be removed 7 days after surgery if they have not fallen off by that point. 2. You may keep the wound open to air as much as possible to promote healing after post-op day number 5 unless told otherwise by your doctor. 3. If you think the wound looks like it is becoming infected (redness or worsening drainage) and/or you are experiencing fever, chill or worsening back pain and muscle spasms, contact the office so that we may evaluate you as soon as possible. B. Complications are uncommon, but please contact us if you have any signs or symptoms of: 1. wound infection (fever higher than 102.5 degrees F, redness, separation of wound, drainage, or increasing pain from the incision) 2. blood clots in legs (pain, swelling, redness and warmth in legs) 3. urinary tract infection (fever higher than 102.5 degrees F, burning upon urination or increased frequency of urination) 4. nerve problems (inability to walk on your toes or heels, numbness, loss of bowel or bladder control) 5. any other symptoms that concern you C. Please call the office at if you have any concerns or questions about your operation or recovery. D. No smoking! Smoking drastically decreases the chance of a solid fusion. E. Do not take any anti-inflammatory medications (Indocin, Advil, Motrin, Aspirin, Naprosyn, etc.) as these may inhibit the chance of a solid fusion. Tylenol is okay to take for pain. MANAGING PAIN AFTER SPINAL SURGERY 1. Narcotic medication is intended for short-term use and will be provided for surgical pain. Surgical pain usually lasts for a period of 4-6 weeks. Narcotic medication includes Percocet, Vicodin, Darvocet, Tylenol #3 or Lortab. 2. Longer-term pain is more appropriately treated with non-narcotic medication such as Tylenol ES. 3. Muscle spasm is not appropriately treated with narcotics. Muscle relaxers such as Soma, Flexeril or Skelaxin can be used along with Tylenol ES. 4. Remember that we all live with some "aches and pains". This is not unusual or uncommon after an injury or as we get older. a. Back pain is expected and may include muscle spasms for 4 to 6 weeks after surgery. The pain should gradually improve. If the pain worsens for no apparent reason, please contact the office. b. Intermittent leg pain may also be experienced and should not be concerned about unless it worsens for no apparent reason. If so, please contact the office. 5. We will provide appropriate medication within the normal guidelines of their prescribed use. We will also be very cautious and aware of potential abuse and extended duration of patients' medication needs. a. Pain medications are for your comfort and to assist with sleep and rest so that the tissue can heal. They are not provided in order to return to normal activity and should not be used through the day. To do so or worsening pain at night can result from ongoing tissue damage and development of tolerance to the prescribed medicine. 6. Please allow 2-3 days to process refills. Prescriptions will not be mailed but must be picked up at the office. FOLLOW UP VISIT: Keep your scheduled follow-up appointment. Any questions, please call the office at . Pending Studies at Discharge: No Stand-Alone Forms: [facility], Opioid Pain Management, Smoking Cessation Medications and DC Order Prescriptions: New oxycodone 5 mg tablet 5 mg PO Q6H PRN (Reason: pain, severe) Qty: 30 RF: 0 tramadol 50 mg tablet 50 mg PO Q6H PRN (Reason: pain, moderate) Qty: 30 RF: 0 Continued multivitamin Tablet 1 tab PO QPM RF: 0 amlodipine 5 mg Tablet 5 mg PO QPM RF: 0 pravastatin 20 mg Tablet 20 mg PO QPM RF: 0 lisinopril 40 mg Tablet 40 mg PO QPM RF: 0 coQ10 (ubiquinol) 200 mg Capsule 400 mg PO QPM RF: 0 meloxicam 15 mg tablet 15 mg PO PM RF: 0 acetaminophen 650 mg Tablet Extended Release 1,300 mg PO Q12H PRN (Reason: Pain) RF: 0 Discharge Orders: Discharge Order (Routine); Ordered 04/15/21 Ordered By: Alma Perez/Other Patient Handouts: DVT Post Op Prevention Admission Data Admit Date/Time: 04/13/21 09:18 Attending Provider: Onel Berry Admit Provider: Suhail aMrquez Primary Care Provider: Courtney Campbell Other Providers: Suhail Marquez ; David Ferguson Other Interventions: Discharge Summary Assessment (RN) Last Done: 04/15/21 11:34
--- NOTE | 2021-04-15 15:17 | Discharge Summary ---
Date of Service April 15, 2021 Admission HPI Per Admitting Provider No Manley is a 60 year old female who presents to the ER with mid-low back pain radiating down both legs with associated paresthesias. She has a significant history of lumbar disc herniation with radiculopathy L4-S1 requiring operative treatment with lumbar decompression and posterior spinal fusion L4-5, L5-S1 in 2019. Since her fall in June last year she has been having progressively worsening back pain radiating down both legs; right > left. She underwent lumbar MRI in November with subsequent LESI without any significant relief. She had planned to follow up with Dr Ferguson as an outpatient however her pain has substantially increased over the last week with associated weakness in both legs. She is unable to stand for more than a minute. Pain relieved with sitting and bending forward. No perianal numbness. She has chronic urinary incontinence which has been worse this week. She denies any fever, chills or new trauma in the last few weeks. In the ER thoracic and lumbar MRI confirmed disc bulge superimposed right paracentral disc extrusion with superior subligamentous migration at L3-L4 in addition to facet arthrosis and ligamentous hypertrophy. The findings result in moderate to severe narrowing of the central canal and severe stenosis of the bilateral lateral recesses and neural foramen. ER provider discussed with Dr Ferguson and recommended admission under medicine at this time. Principal Diagnosis Lumbar Stenosis with Claudication Discharge Exam PHYSICAL EXAM General Appearance: WDWN in NAD who is A&O x 3 HEENT: Head is normocephalic/atraumatic; Hearing grossly intact; Mucous membranes moist Neck: Supple; Trachea midline; Neg JVD Heart: RRR with no M/G/R Lungs: CTA in all lung bond bilaterally; Respirations unlabored; Neg accessory muscle use Abdomen: Soft, non-tender, non-distended; Positive BS x 4 quadrants Extremities: Neg cyanosis or edema; ambulating with walker with steady gait and no LOB; SANDRA drain present to back with surgical dressing in place Neurological: Speech clear; Gross motor/sensory function intact; Neg focal neurologic deficits Psychiatric: Appropriate mood/affect Skin: Normal Color; Warm/Dry Discharge Data Allergies Allergy/AdvReac Type Severity Reaction Status Date / Time latex Allergy Unknown Unknown Verified 04/12/21 15:00 cefadroxil Allergy Hives Verified 04/13/21 16:53 MCCRACKEN CATHETER AdvReac Intermediate EXTREME Uncoded 04/12/21 15:00 ABDOMINAL PAIN Consultations 04/12/21 15:27 ED Decision to Admit Stat 04/12/21 17:46 Consult Orthopedic Surgery Routine Procedures Performed Operation Date: 04/13/21 13:45 Actual Procedures p L3-L4 Lumbar Decompression, L3-S1 Spinal Fusion, L3-L4 Interbody Cage, Spinal Cord Monitoring(Not Applicable) - David Ferguson, Ordered Studies Thoracic Spine MRI 04/12/21 12:11 THORACIC SPINE MRI HISTORY: mid-lower back pain radiating down buttocks/legs TECHNIQUE: Multiplanar multisequence MRI of the thoracic spine was performed without the use of contrast. COMPARISON: None. FINDINGS: Mild disc space narrowing at C4-C5, C5-C6, and C6-C7. There is 1 mm of anterolisthesis of C4 on C5 and 1 mm retrolisthesis of C5 on C6. Broad-based posterior disc bulge at C5-C6 results in mild central canal narrowing at this level. There is moderate to severe disc space narrowing from T3 through L1 consistent with degenerative change. There are tiny endplate osteophytes within the majority of the thoracic spine. The thoracic spinal cord demonstrates a normal course, caliber, and signal intensity. There are small broad-based posterior disc bulges from C3 through L1 resulting in multilevel mild central canal narrowing. Multilevel bilateral neural foraminal narrowing within the mid to lower thoracic spine due to the disc bulges. No areas of high-grade central canal stenosis. Paravertebral soft tissues are unremarkable. Mild endplate degenerative changes within the lower thoracic spine. No fracture or subluxation. IMPRESSION: 1. No fracture or subluxation within the thoracic spine. 2. Moderate to severe disc space narrowing from T3 through L1 with broad-based posterior disc bulges resulting in multilevel mild central canal and mild bilateral neural foraminal narrowing. No high-grade central canal stenosis within the thoracic spine ACT 112: Negative or not required by law. Electronically signed by: Julián Hahn M.D. 04/12/2021 2:32 PM Lumbar Spine MRI 04/12/21 12:12 MRI OF THE LUMBAR SPINE WITHOUT CONTRAST CLINICAL HISTORY: mid-lower back pain radiating down buttocks/legs COMPARISON STUDY: Lumbar spine fluoroscopic images June 04, 2019. TECHNIQUE: Utilizing a 1.5 Cecille magnet and dedicated coil, multiplanar, multiecho imaging of the lumbar spine was performed without IV contrast. FINDINGS: For purposes of numbering on this exam, the L5-S1 disc space is assigned to axial image 36 and 38. There are postoperative findings consistent with L4-L5 and L5-S1 discectomies with posterior decompression and bilateral pedicle screw fusion from L4 through S1. No intracanalicular mass or fluid collection is present. Conus terminates at the L2 level. Paravertebral soft tissues are unremarkable. There is no lumbar spine fracture. There is no suspicious marrow replacement. L1-2: The central canal and neural foramen are patent. There is mild facet arthrosis. L2-3: There is moderate facet arthrosis. Central canal and neural foramen are patent. L3-4: Note is made of a disc bulge with superimposed right paracentral disc extrusion with superior subligamentous migration. Note is made of facet arthrosis with ligamentous hypertrophy. There is moderate to severe narrowing of the central canal. There is severe narrowing of the bilateral neural foramen and lateral recesses. Patent AP diameter of the canal is 7 mm L4-5: There is no residual central canal stenosis status post decompression. Neural foramen are patent. L5-S1: There is no residual central canal stenosis status post decompression. Neural foramen are suboptimally assessed due to susceptibility artifact. There is mild to moderate bilateral neural foraminal stenosis. IMPRESSION: 1. Disc bulge and superimposed right paracentral disc extrusion with superior subligamentous migration at L3-L4 in addition to facet arthrosis and ligamentous hypertrophy. The findings result in moderate to severe narrowing of the central canal and severe stenosis of the bilateral lateral recesses and neural foramen. 2. Otherwise patent central canal. 3. Status post L4-S1 discectomies, posterior decompression and bilateral pedicle screw fusion. 4. No lumbar spine fracture. ACT 112: Negative or not required by law. Electronically signed by: Mark Cordova M.D. 04/12/2021 2:44 PM Lumbar Spine X-Ray 04/13/21 15:00 FL lumbar spine 2-3V CLINICAL HISTORY: L3-4 D/F/I TECHNIQUE: 3 views were obtained with the C-arm in the OR with the above procedure. Total fluoroscopy time was 2.5 seconds. Total skin dose was 11.1 mGy. Comparison: None available at the time of this dictation. FINDINGS/IMPRESSION: Intraoperative images were obtained of L3-L4 decompression and fusion. Please correlate with intraoperative fluoroscopy and operative report. ACT 112: Negative or not required by law. Electronically signed by: Manan Masters M.D. 04/13/2021 7:51 PM Hospital Course (1) Spinal stenosis: - On admission -- Severe symptoms. Able to tolerate pain by sitting down and leaning over but standing up for only short periods causing weakness in her legs; worsening over past week. -- Failed outpatient management with steroid injections with pain management -- Was awaiting appointment for her back but wasn't until 04/30 - Doing extremely well post-operatively and ambulating with a walker. Able to move and ambulate much better and for longer periods of time - Pain and bowel regimen. Rx for pain medications provided. She has Senokot and Miralax at home - Ortho Spine consulted - discussed with Dr. Ferguson today -- MRI shows evidence of marked facet hypertrophy consistent with instability as there is fluid within the join as well as a massive disc condition extending up into the L3-L4 level and foramina on the right causing significant neural compression -- Dr. Ferguson recommending emergent decompression/fusion of L3-L4 with removal of instrumentation of L4-S1 which was completed on 04/13; EBL 250 mL - SANDRA drain removed and plan for outpatient F/U (2) Lumbar disc herniation with radiculopathy: - With neurogenic claudication; As above (3) Hyperlipidemia: - Continue pravastatin 20 mg daily (4) Hypertension: - Continue amlodipine 5 mg daily and lisinopril 40 mg daily (5) Urinary, incontinence, stress female: - Noted acute on chronic issue, do not suspect cauda equina F/U with Dr. Ferguson as outpatient Total Time Total Time Spent Total Time Spent (In Minutes): Spent greater than 30 minutes preparing patient for discharge. This includes discussion with patient/family, assessment, intervention, medication reconciliation, and coordination of care. Discharge Plan Discharge Items Patient Disposition: Home - Self-Care Reason For Visit: SEVERE CENTRAL CANAL STENOSIS Discharge Diagnosis: Lumbar spinal stenosis with neurogenic claudication Activity: As commented below Non-emergency contact: Primary Care Provider Call non-emergency contact if: you have any medication questions Follow-up/Referrals: David Ferguson DO [Surgeon] - 04/30/21 12:00 pm Courtney Campbell PAKarenC [Primary Care Provider] - Diet: Regular Addtl Attending Provider Instructions: ACTIVITY RECOMMENDATIONS: SELF CARE INSTRUCTIONS AFTER THORACIC/LUMBAR FUSIONS 1. You may walk to your tolerance. It is good exercise for your legs and back. Expect some back and intermittent leg aches and pains. 2. You may perform "counter-top" level activities (make a sandwich, marce with a project, etc.). 3. No bending or lifting of more than 10 pounds or back twisting of any nature (roll like a log when turning in bed). 4. You may ride in a car for 20-30 minutes at a time. No driving until after your first visit with your doctor. 5. Frequent changes of position and restricting sitting to 30 minutes at a time will help limit the amount of back spasms and stiffness you may experience. 6. You may discontinue the use of ambulatory aids (cane, crutches, etc.) once your strength and confidence allow. 7. You may casing in line setter the shower and let water strike your incision when you arrive home at least once daily. Do not take a tub bath, sit in a hot tub or go into a swimming pool until after your first recheck in the office. SPECIAL CARE INSTRUCTIONS: VERY IMPORTANT TO READ AND REVIEW A. Your surgical incision has been closed with a cosmetic suture under the skin that will dissolve in about 6 weeks. In 14 days, you can use a pair of clean scissors and cut the suture that is left outside of the skin at the ends of your incision. 1. The small skin tapes can be removed 7 days after surgery if they have not fallen off by that point. 2. You may keep the wound open to air as much as possible to promote healing after post-op day number 5 unless told otherwise by your doctor. 3. If you think the wound looks like it is becoming infected (redness or worsening drainage) and/or you are experiencing fever, chill or worsening back pain and muscle spasms, contact the office so that we may evaluate you as soon as possible. B. Complications are uncommon, but please contact us if you have any signs or symptoms of: 1. wound infection (fever higher than 102.5 degrees F, redness, separation of wound, drainage, or increasing pain from the incision) 2. blood clots in legs (pain, swelling, redness and warmth in legs) 3. urinary tract infection (fever higher than 102.5 degrees F, burning upon urination or increased frequency of urination) 4. nerve problems (inability to walk on your toes or heels, numbness, loss of bowel or bladder control) 5. any other symptoms that concern you C. Please call the office at if you have any concerns or questions about your operation or recovery. D. No smoking! Smoking drastically decreases the chance of a solid fusion. E. Do not take any anti-inflammatory medications (Indocin, Advil, Motrin, Aspirin, Naprosyn, etc.) as these may inhibit the chance of a solid fusion. Tylenol is okay to take for pain. MANAGING PAIN AFTER SPINAL SURGERY 1. Narcotic medication is intended for short-term use and will be provided for surgical pain. Surgical pain usually lasts for a period of 4-6 weeks. Narcotic medication includes Percocet, Vicodin, Darvocet, Tylenol #3 or Lortab. 2. Longer-term pain is more appropriately treated with non-narcotic medication such as Tylenol ES. 3. Muscle spasm is not appropriately treated with narcotics. Muscle relaxers such as Soma, Flexeril or Skelaxin can be used along with Tylenol ES. 4. Remember that we all live with some "aches and pains". This is not unusual or uncommon after an injury or as we get older. a. Back pain is expected and may include muscle spasms for 4 to 6 weeks after surgery. The pain should gradually improve. If the pain worsens for no apparent reason, please contact the office. b. Intermittent leg pain may also be experienced and should not be concerned about unless it worsens for no apparent reason. If so, please contact the office. 5. We will provide appropriate medication within the normal guidelines of their prescribed use. We will also be very cautious and aware of potential abuse and extended duration of patients' medication needs. a. Pain medications are for your comfort and to assist with sleep and rest so that the tissue can heal. They are not provided in order to return to normal activity and should not be used through the day. To do so or worsening pain at night can result from ongoing tissue damage and development of tolerance to the prescribed medicine. 6. Please allow 2-3 days to process refills. Prescriptions will not be mailed but must be picked up at the office. FOLLOW UP VISIT: Keep your scheduled follow-up appointment. Any questions, please call the office at . Pending Studies at Discharge: No Stand-Alone Forms: [facility], Opioid Pain Management, Smoking Cessation Medications and DC Order Prescriptions: New oxycodone 5 mg tablet 5 mg PO Q6H PRN (Reason: pain, severe) Qty: 30 RF: 0 tramadol 50 mg tablet 50 mg PO Q6H PRN (Reason: pain, moderate) Qty: 30 RF: 0 Continued multivitamin Tablet 1 tab PO QPM RF: 0 amlodipine 5 mg Tablet 5 mg PO QPM RF: 0 pravastatin 20 mg Tablet 20 mg PO QPM RF: 0 lisinopril 40 mg Tablet 40 mg PO QPM RF: 0 coQ10 (ubiquinol) 200 mg Capsule 400 mg PO QPM RF: 0 meloxicam 15 mg tablet 15 mg PO PM RF: 0 acetaminophen 650 mg Tablet Extended Release 1,300 mg PO Q12H PRN (Reason: Pain) RF: 0 Discharge Orders: Discharge Order (Routine); Ordered 04/15/21 Ordered By: Alma Perez/Other Patient Handouts: DVT Post Op Prevention Admission Data Admit Date/Time: 04/13/21 09:18 Attending Provider: Onel Berry Admit Provider: Suhail Marquez Primary Care Provider: Courtney Campbell Other Providers: Suhail Marquez ; David Ferguson Other Interventions: Discharge Summary Assessment (RN) Last Done: 04/15/21 11:34 Coding Level of Care Code D/C DAY MANAGEMENT >30 MINS Diagnoses Spinal stenosis M48.00 Lumbar disc herniation with radiculopathy M51.16 Hyperlipidemia E78.5 Hypertension I10 Urinary, incontinence, stress female N39.3
--- NOTE | 2021-04-21 13:58 | Coding Query ---
BMI To promote full compliance with coding requirements relating to patient care, physician participation is requested in all cases of sales clerk uncertainty. Please assist us with the question(s) below: Please place an X within the parenthesis (x). If other, please document: BMI 42 was documented in the operative report for this patient. If the BMI is significant, please check the box that provides a more specific associated diagnosis: ( ) Overweight/Obese ( ) Obesity (x ) Morbid obesity ( ) Obesity Hypoventilation Syndrome (OHS) ( ) Heathy weight, not significant ( ) Underweight/Thin ( ) Other, please specify Thank you Arielle SHELL
== END 2021-04-15 13:59 | disposition home or self-care (01) | DRG 454 ==
LOC: 3W 11:47 → ED 11:47 → SUATTDRO 15:30 → 3W 17:25 → SUATTDRO 04-13 09:18

== ENCOUNTER 2024-08-08 05:23 | Observation (INO) ==
--- NOTE | 2024-07-10 09:14 | PAT Medication Instructions ---
Medication Instructions Date of Service July 10, 2024 Home Medications Medication Instructions Recorded oxycodone 5 mg tablet 5 mg PO Q6H PRN pain, severe #30 04/14/21 tabs tramadol 50 mg tablet 50 mg PO Q6H PRN pain, moderate 04/14/21 #30 tabs methylprednisolone 4 mg tablets in 4 mg PO DAILY #21 ea 02/12/24 a dose pack (Medrol (Mickey)) ondansetron 4 mg disintegrating 4 mg PO Q6H PRN nausea and 02/12/24 tablet vomiting #10 tabs oxycodone 5 mg tablet 5 mg PO Q6H PRN pain #7 tabs 02/12/24 amlodipine 5 mg tablet 10 mg PO QPM coQ10 (ubiquinol) 200 mg capsule 400 mg PO QPM lisinopril 40 mg tablet 40 mg PO QPM multivitamin 1 tab PO QPM pravastatin 20 mg tablet 40 mg PO QPM acetaminophen 650 mg tablet,extended release 1,300 mg PO Q12H PRN Pain meloxicam 15 mg tablet 15 mg PO PM oxycodone 5 mg tablet 5 mg PO Q6H PRN pain, severe tramadol 50 mg tablet 50 mg PO Q6H PRN pain, moderate methylprednisolone 4 mg tablets in a dose pack (Medrol (Mickey)) 4 mg PO DAILY ondansetron 4 mg disintegrating tablet 4 mg PO Q6H PRN nausea and vomiting oxycodone 5 mg tablet 5 mg PO Q6H PRN pain Continue as directed methylprednisolone 4 mg tablets in a dose pack (Medrol (Mickey)) 4 mg PO DAILY ASK your surgeon for instructions meloxicam 15 mg tablet 15 mg PO PM STOP taking 2 weeks before surgery (or as soon as possible if surgery is within 2 weeks) coQ10 (ubiquinol) 200 mg capsule 400 mg PO QPM Take morning of surgery With a small sip of water, OTHERWISE NOTHING TO EAT OR DRINK AFTER MIDNIGHT: acetaminophen 650 mg tablet,extended release 1,300 mg PO Q12H PRN Pain (if needed) oxycodone 5 mg tablet 5 mg PO Q6H PRN pain, severe (if needed) tramadol 50 mg tablet 50 mg PO Q6H PRN pain, moderate (if needed) ondansetron 4 mg disintegrating tablet 4 mg PO Q6H PRN nausea and vomiting (if needed) oxycodone 5 mg tablet 5 mg PO Q6H PRN pain (if needed) Take evening before surgery amlodipine 5 mg tablet 10 mg PO QPM lisinopril 40 mg tablet 40 mg PO QPM multivitamin 1 tab PO QPM pravastatin 20 mg tablet 40 mg PO QPM acetaminophen 650 mg tablet,extended release 1,300 mg PO Q12H PRN Pain (if needed) oxycodone 5 mg tablet 5 mg PO Q6H PRN pain, severe (if needed) tramadol 50 mg tablet 50 mg PO Q6H PRN pain, moderate (if needed) ondansetron 4 mg disintegrating tablet 4 mg PO Q6H PRN nausea and vomiting (if needed) oxycodone 5 mg tablet 5 mg PO Q6H PRN pain (if needed) Other Notes If you have any questions please call us at [phone] or [phone] or [phone] or [phone]
--- NOTE | 2024-07-16 11:02 | Anesthesiology Consultation ---
Date of Service July 16, 2024 Assessment & Plan (1) Encounter for pre-operative examination: - Infectious disease screening: Per assessment on 07/06/24- No known recent infectious disease contacts or current infectious disease symptoms. - Patient acceptable risk for surgery pending surgeon-ordered PCP preop evaluation (Courtney [facility], appt 07/25). Chart Review Chart Review: Patient seen in Pre Admission Testing Teaching & Discussion Pre-Anesthesia Teaching/Discussion Notes: Instructed NPO after midnight before surgery,except medications with 15 cc of water. Medication instructions provided according to the PAT guidelines. History Surgery Operation Date: 08/08/24 11:25 Proposed Procedures p L2-L3 Decompression and Fusion, Possible L3-S1 Hardware Removal and Instrumentation, with Spinal Cord Monitoring - David Ferguson DO Height/Weight Height: 5 ft 3 in Weight: 99.6 kg Allergies Allergy/AdvReac Type Severity Reaction Status Date / Time cefadroxil Allergy Unknown Hives, rash Verified 07/16/24 11:14 latex Allergy Unknown Possible, Verified 07/16/24 11:15 excrutiating pain with mccracken catheters MCCRACKEN CATHETER AdvReac Intermediate Excrutiating Uncoded 07/16/24 11:15 pain (possible latex allergy) Medications Home Medications Medication Instructions Recorded Confirmed Last Taken amlodipine 5 mg tablet 10 mg PO QPM 05/11/19 07/06/24 04/11/21 coQ10 (ubiquinol) 200 mg capsule 400 mg PO QPM 05/11/19 07/06/24 04/11/21 lisinopril 40 mg tablet 40 mg PO QPM 05/11/19 07/06/24 04/11/21 multivitamin 1 tab PO QPM 05/11/19 07/06/24 04/11/21 pravastatin 20 mg tablet 40 mg PO QPM 05/11/19 07/06/24 04/11/21 acetaminophen 650 mg 1,300 mg PO Q12H PRN Pain 04/12/21 07/06/24 04/11/21 tablet,extended release 1300 mg meloxicam 15 mg tablet 15 mg PO PM 04/12/21 07/06/24 04/11/21 ondansetron 4 mg disintegrating 4 mg PO Q6H PRN nausea and 02/12/24 07/06/24 Unknown tablet vomiting #10 tabs Past Medical History Medical History Arthritis HTN (hypertension) Hyperlipidemia Spinal stenosis Urinary incontinence Exercise / Class Metabolic Activity II 4-5 Yardwork/Stairs/Walk up hill (one FS: No CP, no SOB) Past Family History Family History Mother Family history of diabetes mellitus Past Surgical History Surgical History History of appendectomy History of carpal tunnel release R/L History of section x3 History of colonoscopy History of dilatation and curettage History of lumbar surgery x2 L3-4 Decompression/fusion; [facility] (2021) History of tonsillectomy and adenoidectomy History of total left knee replacement History of total right knee replacement Hx of cone biopsy of cervix Hx of hysterectomy Hx of vein stripping Right [place] teeth removed Past Anesthesia History No Hx of Anesthesia Complications and No Family Hx of Anesthesia Complications History of PONV No Hx of PONV and No Hx of Motion Sickness Social History Smoking Status: Never smoker Do You Dip or Chew Tobacco: No Hx Alcohol Use: No Hx Substance Use: No substance use type: does not use Review of Systems Patient denies chest pain, shortness of breath, dyspnea on exertion, fever, chills, cough, wheezing, palpitations. Physical Exam Vital Signs BP 127/82 P 73 TEMP 97.8 SP02 95%RA RESP 16 Physical Full cervical extension range of motion. Full TMJ range of motion. TMD 3 finger breaths Mallampati Score I Dentition: intact Lungs: clear throughout to auscultation Cardiac: regular rate and rhythm, no murmurs noted Spine: normal Carotid arteries: negative bruit Extremities: no LE edema Lab Results Anesthesia Preop Results Results Anesthesia Widget: WBC 5.76 K/ul (4.8-10.8) 07/16/24 Hgb 14.6 g/dl (12.0-16.0) 07/16/24 Hct 42.6 % (37.0-47.0) 07/16/24 Plt 245 K/uL (130-400) 07/16/24 Na 141 mmol/L (136-145) 07/16/24 K 4.0 mmol/L (3.5-5.1) 07/16/24 Cl 105 mmol/L (98-107) 07/16/24 CO2 29 mmol/L (21-32) 07/16/24 BUN 19 mg/dl (6-23) 07/16/24 Creat 0.56 mg/dl (0.6-1.2) L 07/16/24 Glucose Level 100 mg/dl (70-99(Fasting)) H 07/16/24 PT 11.3 Seconds (9.0-12.0) 07/16/24 PTT 30 Seconds (21-31) 07/16/24 INR 1.0 (0.9-1.1) 07/16/24 Urine Color Yellow 07/16/24 Urine Appearance Clear (Clear) 07/16/24 Urine pH 6.5 (4.5-7.5) 07/16/24 Urine Specific Bagley 1.018 (1.000-1.030) 07/16/24 Urine Protein Negative (Negative) 07/16/24 Urine Glucose (UA) Negative (Negative) 07/16/24 Urine Ketones Negative (Negative) 07/16/24 Urine Blood Negative (Negative) 07/16/24 Urine Nitrite Negative (Negative) 07/16/24 Urine Bilirubin Negative (Negative) 07/16/24 Urine Urobilinogen Negative (Negative) 07/16/24 Urine Leukocyte Esterase Negative (Negative) 07/16/24 Blood Type O Positive 07/16/24 Antibody Screen NEGATIVE 07/16/24 Testing Electrocardiogram Date: 07/16/24 NSR at 77bpm. "Normal ECG" Chest X-Ray Date: 07/16/24 Findings: + NAD
[~2024-08-08 05:23] MED LIST changes: -ACETAMINOPHEN 500 MG TAB PO SCH; -CEFAZOLIN 2000MG 2,000 MG/15 ML SYR IV SCH; -CeleBREX 200 MG CAP PO SCH; -GABAPENTIN 600 MG DOSE PO SCH; +General Order Problem(s) SCH; -LR 15ML/HR IV SCH; -SODIUM CHLORIDE 0.9% 250 ML IV PRN
[2024-08-08] MEDS: VANCOMYCIN HCL 1,500 MG in SODIUM CHLORIDE 0.9% 500 ML IV SCH (05:44)
[2024-08-08] MEDS: LR 15ML/HR IV SCH (05:47)
[2024-08-08] MEDS: LR 60ML/HR IV SCH (05:47)
[2024-08-08] MEDS: ACETAMINOPHEN 500 MG TAB PO SCH (06:12)
[2024-08-08] MEDS: CeleBREX 200 MG CAP PO SCH (06:12)
[2024-08-08] MEDS: GABAPENTIN 600 MG DOSE PO SCH (06:12)
[2024-08-08] MEDS ORDERED: ONDANSETRON INJ 2 MG/ML 2 ML VIAL ONE ×3 (07:06→09:31)
[2024-08-08] MEDS ORDERED: MIDAZOLAM HCL 1 MG/ML 2ML VIAL ONE (07:06)
[2024-08-08] MEDS ORDERED: PROPOFOL IV EMULSION 10 MG/ML 20 ML VIAL IV ONE (07:06)
[2024-08-08] MEDS ORDERED: LIDOCAINE 2% 2 ML VIAL/AMP(20MG/ML) INFIL ONE (07:06)
[2024-08-08] MEDS ORDERED: DEXAMETHASONE SOD INJ 4 MG/ML VIAL ONE (07:06)
[2024-08-08] MEDS ORDERED: ROCURONIUM BROMIDE 10 MG/ML 5 ML VIAL IV ONE ×2 (07:06→08:44)
[2024-08-08] MEDS ORDERED: LARYING-O-JET KIT (LTA) ONE (07:06)
[2024-08-08] MEDS ORDERED: HYDROmorphone INJ 2 MG/ML SYR/VIAL ONE (07:07)
[2024-08-08] MEDS ORDERED: SODIUM CHLORIDE 0.9% PF INJ 10 ML VIAL ONE (07:08)
--- NOTE | 2024-08-08 07:41 | History & Physical Bridge Note ---
Date of Service August 08, 2024 History & Physical Bridge Note I have examined the patient, reviewed the History & Physical and in the interval since the performance of the History & Physical I have noted the following changes of clinical significance: no changes noted
--- NOTE | 2024-08-08 07:42 | History & Physical Report ---
Date of Service August 08, 2024 Assessment & Plan (1) Lumbar disc herniation with radiculopathy: Plan: Decompression and fusion L2-L3, possible L3-S1 hardware removal and instrumentation History of Present Illness Chief Complaint: Back and leg pain Primary Care Provider: Courtney Campbell PA-C This is a 65-year-old female who presents with chronic persistent back and leg pain after failing course of nonoperative care she is here for surgical invention. Allergies Allergy/AdvReac Type Severity Reaction Status Date / Time cefadroxil Allergy Unknown Hives, rash Verified 08/08/24 05:48 latex Allergy Unknown Possible, Verified 08/08/24 05:48 excrutiating pain with mccracken catheters MCCRACKEN CATHETER AdvReac Intermediate Excrutiating Uncoded 08/08/24 05:48 pain (possible latex allergy) Home Medications Medication Instructions Recorded Confirmed Type amlodipine 5 mg tablet 10 mg PO QPM 05/11/19 08/08/24 History coQ10 (ubiquinol) 200 mg capsule 400 mg PO QPM 05/11/19 08/08/24 History lisinopril 40 mg tablet 40 mg PO QPM 05/11/19 08/08/24 History multivitamin 1 tab PO QPM 05/11/19 08/08/24 History pravastatin 20 mg tablet 40 mg PO QPM 05/11/19 08/08/24 History acetaminophen 650 mg 1,300 mg PO Q12H PRN Pain 04/12/21 08/08/24 History tablet,extended release meloxicam 15 mg tablet 15 mg PO PM 04/12/21 08/08/24 History Past Med/Surg History Problem List Neurogenic claudication due to lumbar spinal stenosis (Acute) Spinal stenosis (Acute) Lumbar disc herniation with radiculopathy (Acute) Encounter for pre-operative examination Urinary, incontinence, stress female Hyperlipidemia Hypertension Medical History Arthritis HTN (hypertension) Hyperlipidemia Spinal stenosis Urinary incontinence Surgical History History of appendectomy History of carpal tunnel release R/L History of section x3 History of colonoscopy History of dilatation and curettage History of lumbar surgery x2 L3-4 Decompression/fusion; [facility] (2021) History of tonsillectomy and adenoidectomy History of total left knee replacement History of total right knee replacement Hx of cone biopsy of cervix Hx of hysterectomy Hx of vein stripping Right [place] teeth removed Family History Mother Family history of diabetes mellitus Social History Smoking Status: Never smoker Second Hand Exposure: No; Do You Dip or Chew Tobacco: No; Tobacco Cessation Education Requested by Patient: No Hx Alcohol Use: No Hx Substance Use: No Preferred Language: Persian Communication Ability: Effective Hairspring Cutter Required: No Beliefs That Will Affect Care: None marital status: Current Living Situation: Spouse Other Information That Helps Us Care for You: No Feels Safe at Home: Yes Safety Concerns: Feels Safe At This Time Assistive Devices: Walker Physical Exam Physical Exam: Patient is alert and oriented heart regular rhythm lungs clear Results & Data Results & Data Vital Signs (Past 12 Hours) Vital Signs Temp Pulse Resp BP Pulse Ox O2 Del Method 08/08/24 05:51 36.7 C 95 H 20 133/87 95 Room Air
[2024-08-08] MEDS ORDERED: PHENYLEPHRINE 100MCG/ML 5ML SYR ONE ×2 (08:11→09:00)
[2024-08-08] MEDS ORDERED: SUGAMMADEX SODIUM 200 MG/2 ML VIAL IV ONE (08:23)
[2024-08-08] MEDS: ceFAZolin 330 MG/ML 1 GM VIAL ONE (09:34)
[2024-08-08] MEDS: BUPIVACAINE/EPINEPHRINE 0.25% 1:200,000 30 ML VIAL ONE (09:34)
[2024-08-08] MEDS: FLOSEAL HEMOSTATIC MATRIX 10ML TOP ONE (09:35)
--- NOTE | 2024-08-08 09:51 | Operative Report ---
Post Operative Report Pre & Post Diagnosis Operation Date: 08/08/24 07:45 Pre-Op Diagnosis: #1 lumbar spondylosis with radiculopathy #2 lumbar disc herniation with radiculopathy Post-Op Diagnosis: Same I identified the patient and participated in the time-out.: Yes Procedure Operation Date: 08/08/24 07:45 Actual Procedures #1 lumbar decompression with bilateral medial facetectomies and foraminotomies L2-L3. #2 posterior spinal fusion L2-L3. #3 placed posterior instrumentation with pedicle screws and L2 and connectors at L3-L4. #4 interbody fusion L2-L3. #5 placement Spira 10 x 26 mm at L2-L3. #6 placement locally harvested morselized autograft posterior gutters. #7 placement infuse collagen sponge, with Koros in the posterior lateral gutters and os design interbody space. #8 application of versa wrap of the exposed dura. Surgeon David Ferguson, DO Powder Room Attendant Christian Argueta Estimated Blood Loss 200 Findings See Below The patient is 5 foot 3 weighing over 98 kg with a BMI in excess of 38. The patient's body was to contribute to significant technical difficulty with positioning exposure and the procedure itself. At least 50% increased operative time. Specimens None Indications This is a 64-year-old female who presents above-mentioned diagnosis after failing course of nonoperative care she is here for surgical invention. Description of Procedure Patient was met with identified informed consent obtained. Patient was then taken to the operative suite underwent intubation placed in a prone position on the Asad table top the Villa frame. All bony prominences well-padded eyes inspected to ensure no external precipice spinal. This point the lumbar spine was prepped and draped in normal sterile fashion. Sharp dissection with the assistance of Bovie cautery from down to and exposing the lamina and transverse processes of L2 and the instrumentation L3-L4. And then proceeded to perform complete laminectomy of L2 with bilateral medial facetectomies and foraminotomies addressing severe neural compression. Pedicle screws were then placed in L2 and connectors attached to the jaret between L3 and L4. By way of transforaminal approach on the left complete discectomy at L2-L3 was performed endplates corrected to subcortical bone and 10 x 26 mm spiral cage filled with os design bone graft tapped in position. Proper size rods were then placed locked in final position bilaterally. The transverse processes of L2-L3 burred to subcortical bone. Infuse collagen sponge combined with Koros and local graft placed in the posterior gutters. First wrap placed over the exposed dura. 15 round SANDRA drain inserted. The incision was then closed with 1 Vicryl the fascia 2-0 Vicryl subcutaneously and 4 Monocryl for fascial closure. Steri-Strips sterile dressing placed. Patient waken taken to PACU in stable condition. Pl ease note Christian record was present of the entire procedure and while the patient positioning complex portion of the surgery and final skin closure. Im ordering 10 grams of Collagen Powder ([facility] A6010 Primary Dressing) and 10 bordered super absorbent ([facility] A6196 Secondary Dressing) to treat an incision wound that was caused by a spine procedure. The incision is approximately 2 cm(W) x 2 cm(L) down to the spinal column and epidural space 2 cm (D) in size and is a full thickness wound showing no signs of infection. Collagen comes in 1 gram packets so 10 packets were ordered. Given the size of the wound, with moderate exudate I chose to order a 10 day supply. The patient will be provided instructions for proper application of the collagen wound kit. The patient will be asked to apply the collagen powder daily and then cover it with sterile dressings dispensed. Collagen was selected as I expect the collagen to attract monocytes and fibroblasts, act as a sacrificial substrate for MMPs, and ultimately proved a matrix for tissue and vessel growth. The collagen will act as a primary dressing in this scenario. It is medically necessary for proper healing of these wounds to improve bioavailability and contact with each wound surface, this is also to help prevent infection of wounds and promote healing ultimately leading to a better healing outcome and limit the risk of infection. I attest to the content of the Intraoperative Record and any orders documented therein. Any exceptions are noted below.
[2024-08-08] MEDS ORDERED: ePHEDrine sulfate 50 MG/ML AMP IV PRN (10:56)
[2024-08-08] MEDS ORDERED: ATROPINE SULFATE 0.1 MG/ML 10ML SYR IV PRN (10:56)
[2024-08-08] MEDS ORDERED: ONDANSETRON INJ 2 MG/ML 2 ML VIAL IV PRN ×2 (10:56→11:57)
[2024-08-08] MEDS ORDERED: fentaNYL citrate PF 100 MCG/2 ML VIAL IV PRN (10:56)
--- NOTE | 2024-08-08 11:07 | Fluoroscopy Report ---
FL lumbar spine 2-3V CLINICAL HISTORY: L2-L3 DECOMPRESSION AND FUSION L3-S1 HW REMOVAL COMPARISON STUDY: None FLUOROSCOPY TIME: 13 seconds FLUOROSCOPY IMAGES: 4 EXPOSURE DOSE: 12 mGy FINDINGS: Fluoroscopy was provided for lumbar surgery. IMPRESSION: Intraoperative fluoroscopy. ACT 112: Negative or not required by law. Electronically signed by: Titi Arnold M.D. 08/08/2024 11:06 AM
--- NOTE | 2024-08-08 11:16 | Anesthesiology Progress Note ---
Date of Service August 08, 2024 Anesthesia Post Procedure Vital Signs Vital Signs: Temp Pulse Resp BP Pulse Ox O2 Del Method O2 Flow Rate 08/08/24 11:00 91 H 11 L 107/70 94 Nasal Cannula 4 08/08/24 10:50 89 13 97/76 L 94 Nasal Cannula 4 08/08/24 10:40 87 12 108/71 97 Nasal Cannula 4 08/08/24 10:30 92 H 12 120/92 97 Nasal Cannula 4 08/08/24 10:20 96 H 13 114/74 100 Non-rebreather 15 08/08/24 10:10 89 20 123/65 96 Ambu-Bag 15 08/08/24 10:03 36.3 C L 98 H 10 L 116/58 L 66 L Oxymask 10 08/08/24 05:51 36.7 C 95 H 20 133/87 95 Room Air Pain Intensity Lower Back: Pain Intensity: 3 Transfer of Care Handoff Completed per policy Notes Mental Status: alert / awake / arousable Patient Amnestic to Procedure: Yes Nausea / Vomiting: adequately controlled Pain: adequately controlled Airway Patency, RR, SpO2: stable & adequate BP & HR: stable & adequate Hydration State: stable & adequate Anesthetic Complications: no major complications apparent
[2024-08-08] MEDS ORDERED: MAGNESIUM HYDROXIDE SUSP 30 ML UDC PO PRN (11:57)
[2024-08-08] MEDS ORDERED: DO NOT ADMINISTER PNEUMOCOCCAL VACCINE PRN (11:57)
[2024-08-08] MEDS ORDERED: DO NOT ADMINISTER FLU VACCINE PRN (11:57)
[2024-08-08] MEDS ORDERED: HYDROmorphone INJ 0.5 MG/0.5 ML SYR IV PRN (11:57)
[2024-08-08] MEDS ORDERED: HYDROmorphone INJ 1 MG/ML SYRINGE IV PRN (11:57)
[2024-08-08] MEDS ORDERED: METOCLOPRAMIDE HCL INJ 5 MG/ML 2 ML VIAL IV PRN (11:57)
[2024-08-08] MEDS ORDERED: PROMETHAZINE 12.5 MG/50.5 ML BAG IV PRN (11:57)
[2024-08-08] MEDS ORDERED: LORazepam 0.5 MG TAB PO PRN (11:57)
[2024-08-08] MEDS ORDERED: bisacodyL 10 MG SUPP PR PRN (11:57)
[2024-08-08] MEDS ORDERED: hydrOXYzine HCl 25 MG TAB PO PRN (11:57)
[2024-08-08] MEDS ORDERED: LORazepam 2 MG/1 ML VIAL IV PRN (11:57)
[2024-08-08] MEDS ORDERED: ALUMINUM/MAGNESIUM SUSP 30 ML UDC PO PRN (11:57)
[2024-08-08] MEDS ORDERED: SOD PHOSPHATE/SOD BIPHOSPHATE ENEMA 132 ML BTL PR PRN (11:57)
[2024-08-08] MEDS ORDERED: ONDANSETRON 4 MG OD TAB PO PRN (11:57)
[2024-08-08] MEDS ORDERED: traMADol HCL 50 MG TABLET PO PRN (11:57)
[2024-08-08] MEDS ORDERED: ACETAMINOPHEN 1,000 MG/100 ML VIAL IV PRN (11:57)
[2024-08-08] MEDS ORDERED: FAMOTIDINE 20 MG TAB PO PRN (11:57)
[2024-08-08] MEDS ORDERED: NALOXONE HCL 0.4 MG/1 ML VIAL/CARP IV PRN (11:57)
[2024-08-08] MEDS: ACETAMINOPHEN 500 MG TAB PO PRN (13:26)
--- NOTE | 2024-08-08 15:26 | Consultation ---
Date of Consultation August 08, 2024 Assessment & Plan (1) Hypertension: Blood pressures under good control, 129/78 mmHg She takes amlodipine and lisinopril at home, will continue Continue to monitor blood pressure (2) Neurogenic claudication due to lumbar spinal stenosis: Lumbar disc herniation: She is now status post lumbar decompression with bilateral medial facetectomies and foraminotomies L2-L3 Also posterior spinal fusion of L2-L3 She is stable postsurgery, drain is in situ, with scant bloody fluid Pain is under good control Rest of management as per orthopedics Plan Thank you for letting us participate in the care of this patient History of Present Illness Requesting Physician: Dr Ferguson Reason for Consultation: medical mgt Attending Physician: David Ferguson, DO History of Present Illness Patient is a 65-year-old female with a history of hypertension, lumbar disc herniation. Spinal fusion surgery who presents to the hospital for an elective decompression and fusion and also possible hardware removal. Internal medicine was consulted for medical management postop. Patient is stable postsurgery pain is under good control vital signs are still stable, blood pressure 129/79, pulse 87 saturating 94% on room air. Of note, patient states she has been compliant with her blood pressure medicines at home, she takes amlodipine and also lisinopril Allergies Allergy/AdvReac Type Severity Reaction Status Date / Time cefadroxil Allergy Unknown Hives, rash Verified 08/08/24 05:48 latex Allergy Unknown Possible, Verified 08/08/24 05:48 excrutiating pain with mccracken catheters MCCRACKEN CATHETER AdvReac Intermediate Excrutiating Uncoded 08/08/24 05:48 pain (possible latex allergy) Home Medications Medication Instructions Recorded Confirmed Type amlodipine 5 mg tablet 10 mg PO QPM 05/11/19 08/08/24 History coQ10 (ubiquinol) 200 mg capsule 400 mg PO QPM 05/11/19 08/08/24 History lisinopril 40 mg tablet 40 mg PO QPM 05/11/19 08/08/24 History multivitamin 1 tab PO QPM 05/11/19 08/08/24 History pravastatin 20 mg tablet 40 mg PO QPM 05/11/19 08/08/24 History acetaminophen 650 mg 1,300 mg PO Q12H PRN Pain 04/12/21 08/08/24 History tablet,extended release meloxicam 15 mg tablet 15 mg PO PM 04/12/21 08/08/24 History Patient History Medical History Arthritis HTN (hypertension) Hyperlipidemia Spinal stenosis Urinary incontinence Surgical History History of appendectomy History of carpal tunnel release R/L History of section x3 History of colonoscopy History of dilatation and curettage History of lumbar surgery x2 L3-4 Decompression/fusion; [facility] (2021) History of tonsillectomy and adenoidectomy History of total left knee replacement History of total right knee replacement Hx of cone biopsy of cervix Hx of hysterectomy Hx of vein stripping Right [place] teeth removed Family History Mother Family history of diabetes mellitus Social History Smoking Status: Never smoker Second Hand Exposure: No; Do You Dip or Chew Tobacco: No; Tobacco Cessation Education Requested by Patient: No Hx Alcohol Use: No Hx Substance Use: No Preferred Language: Spanish Communication Ability: Effective Brazing Machine Operator Required: No Beliefs That Will Affect Care: None marital status: Current Living Situation: Spouse Other Information That Helps Us Care for You: No Feels Safe at Home: Yes Safety Concerns: Feels Safe At This Time Assistive Devices: Walker Review of Systems Review of Systems: All systems reviewed are negative, apart from the ones contained in the history. Physical Exam Physical Exam: The patient is awake, alert and oriented 3, well developed and well nourished, normocephalic and atraumatic, lying in bed and in no acute distress. HEENT--PERRL, EOMI, mucous membranes and oropharynx mildly dry Neck--supple. No JVD. No bruits. Thyroid normal, trachea midline, no adenopathy. Heart--normal S1 and S2. No murmurs, rubs or gallops. Lungs--clear bilaterally, no respiratory distress, no accessory muscle use. Abdomen--normal bowel sounds and soft. Extremities--no cyanosis or clubbing. No edema. Dermatologic--normal skin turgor, normal color, no abnormal lymph nodes, no rash. Neurologic--cranial nerves II through XII grossly intact. Rheumatologic--normal range of motion. Psychiatric--normal affect. Results & Data Vital Signs (Past 12 Hours) Vital Signs Temp Pulse Pulse Resp BP Pulse Ox O2 Del Method 08/08/24 15:13 97.7 F 87 16 129/78 94 Room Air 08/08/24 14:09 97.7 F 90 16 120/74 97 Nasal Cannula 08/08/24 13:05 89 16 117/67 96 Nasal Cannula 08/08/24 12:36 97.7 F 90 16 103/68 96 Nasal Cannula 08/08/24 12:24 Nasal Cannula 08/08/24 12:05 98.1 F 89 14 119/73 98 Nasal Cannula 08/08/24 11:40 89 7 L 141/70 H 95 Nasal Cannula 08/08/24 11:25 98 H 20 111/78 95 Nasal Cannula 08/08/24 11:10 97.7 F 92 H 14 134/74 93 Nasal Cannula 08/08/24 11:00 91 H 11 L 107/70 94 Nasal Cannula 08/08/24 10:50 89 13 97/76 L 94 Nasal Cannula 08/08/24 10:40 87 12 108/71 97 Nasal Cannula 08/08/24 10:30 92 H 12 120/92 97 Nasal Cannula 08/08/24 10:20 96 H 13 114/74 100 Non-rebreather 08/08/24 10:10 89 20 123/65 96 Ambu-Bag 08/08/24 10:03 97.3 F L 98 H 10 L 116/58 L 66 L Oxymask 08/08/24 05:51 98.1 F 95 H 20 133/87 95 Room Air O2 Flow Rate 08/08/24 15:13 08/08/24 14:09 2.0 08/08/24 13:05 2.0 08/08/24 12:36 2 08/08/24 12:24 2 08/08/24 12:05 2 08/08/24 11:40 3 08/08/24 11:25 3 08/08/24 11:10 3 08/08/24 11:00 4 08/08/24 10:50 4 08/08/24 10:40 4 08/08/24 10:30 4 08/08/24 10:20 15 08/08/24 10:10 15 08/08/24 10:03 10 08/08/24 05:51
[2024-08-08] MEDS: CLINDAMYCIN/D5W 600 MG/50 ML BAG IV SCH (16:31)
[2024-08-08] MEDS ORDERED: NON-FORMULARY MEDICATION (Coq10 (Ubiquinol) 200 mg Capsule) PO SCH (21:00)
[2024-08-08] MEDS: amLODIPine BESYLATE 5 MG TAB PO SCH (21:09)
[2024-08-08] MEDS: PRAVASTATIN SOD 40 MG TAB PO SCH (21:09)
[2024-08-08] MEDS: MULTIVITAMIN TAB PO SCH (21:09)
[2024-08-08] MEDS: DOCUSATE SODIUM/SENNA 50/8.6MG TAB PO SCH (21:09)
[2024-08-08] MEDS: lisinopril 40 MG TAB PO SCH (21:09)
[2024-08-09] MEDS: POLYETHYLENE (MIRALAX) 17 GM PACK PO SCH (05:31)
[2024-08-09 06:30] LABS: Basophils # (auto) 0.02 K/uL (0.00-0.20); Basophils % (auto) 0.1 %; Eosinophils # (auto) 0.01 K/uL (0.00-0.50); Eosinophils % (auto) 0.1 %; Hematocrit (blood only) 39.2 % (37.0-47.0); Hemoglobin 12.9 g/dl (12.0-16.0); Immature Granulocytes # (auto) 0.08 K/uL (0.01-0.20); Immature Granulocytes % (auto) 0.6 %; Lymphocytes # (auto) 1.87 K/uL (1.20-3.40); Lymphocytes % (auto) 13.5 %; Mean Corpuscular Hemoglobin 32.7 pg (25.0-34.0); Mean Corpuscular Hgb Conc 32.9 g/dL (32.0-36.0); Mean Corpuscular Volume 99.2 fL (80.0-100.0); Mean Platelet Volume 11.5 fL (9.4-12.4); Monocytes # (auto) 1.08 K/uL (0.11-0.59); Monocytes % (auto) 7.8 %; Neutrophils # (auto) 10.77 K/uL (1.40-6.50); Neutrophils % (auto) 77.9 %; Platelet Count 251 K/uL (130-400); RDW Coefficient of Variation 13.3 % (11.5-14.5); RDW Standard Deviation 48.4 fL (36.4-46.3); Red Blood Count 3.95 M/uL (4.20-5.40); White Blood Count 13.83 K/ul (4.8-10.8)
[2024-08-09 06:49] LABS: Calcium 9.1 mg/dl (8.6-10.3); Creatinine Clr Calc Pharmacy 110.7 ml/min; Potassium 3.9 mmol/L (3.5-5.1)
--- NOTE | 2024-08-09 08:17 | Orthopedic Progress Note ---
Date of Service August 09, 2024 Assessment & Plan (1) Neurogenic claudication due to lumbar spinal stenosis: Plan: At this time we will continue physical therapy monitor her SANDRA operatively discharge home in next few days. Admission and Anticipated Discharge Date Admission Date: August 08, 2024 Subjective Back pain improved. Leg pain improved. She has been up and ambulating. Physical Exam Physical Exam: Patient is in the chair at the bedside. She is comfortable. Distracted testing. Results & Data Vital Signs (Past 12 Hours) Vital Signs Temp Pulse Resp BP Pulse Ox O2 Del Method 08/09/24 07:11 36.7 C 82 18 124/80 97 Room Air 08/09/24 03:23 36.5 C 95 H 18 135/73 94 Room Air 08/08/24 23:19 36.5 C 86 18 125/76 92 Room Air Queries Orthopedic Spine Obesity: Yes
[2024-08-09] MEDS: dexAMETHasone 6 MG in SYRINGE 0 ML IV SCH (08:26)
--- NOTE | 2024-08-09 11:23 | Hospitalist Progress Note ---
Date of Service August 09, 2024 Assessment & Plan (1) Hypertension: Plan: Blood pressures under good control con't amlodipine and lisinopril at home, will continue Continue to monitor blood pressure (2) Neurogenic claudication due to lumbar spinal stenosis: Plan: Lumbar disc herniation: She is now status post lumbar decompression with bilateral medial facetectomies and foraminotomies L2-L3 Also posterior spinal fusion of L2-L3 She is stable postsurgery, drain is in situ, with scant bloody fluid Pain is under good control Rest of management as per orthopedics Admission and Anticipated Discharge Date Admission Date: August 08, 2024 Subjective No events overnight. Pt resting comfortably in bed. Review of Systems Review of Systems: CONST: Negative for fever, body aches and chills. HENT: Negative for neck pain/stiffness, headache, congestion, sore throat, swelling. EYES: Negative for discharge/pain or vision changes. RESP: Negative for cough/hemoptysis and shortness of breath. CV: Negative chest pain, difficulty breathing, palpitations. ABD: Negative pain, nausea, vomiting. : Negative increase frequency, dysuria, blood in urine or stool. MUSC: Negative for muscle aches, edema. SKIN: Negative rash, lesions/sores. NEURO: Negative headache, dizziness, weakness. Physical Exam Physical Exam: GENERAL APPEARANCE NAD, activity normal for age, well developed/ well nourished, no cyanosis, pallor, or diaphoresis. EYES lids/conjunctiva normal. EARS/NOSE/THROAT Mucous membranes moist, nares normal, lips/teeth normal uvula midline without oral pharyngeal erythema, exudate or swelling TMs normal bilaterally. No lymphangitis/lymphedema. HEAD/NECK normocephalic atraumatic, no facial trauma, neck is supple. RESPIRATORY respiratory effort normal, speaks in full sentences, no tripod position, no accessory muscle use. Lungs clear to auscultation without rhonchi, wheezes, rales CARDIAC Regular rate and rhythm, no edema. ABDOMINAL Soft, ND/NT. No evidence of fluid wave. No pulsatile masses on exam, rebound tenderness, Álvarez sign or pain over Mcburney's point. MUSCLES/EXTREMITIES No abnormal range of motion, no swelling. SKIN Warm, pink and dry. No rashes, dermatoses, petechiae or lesions. NEUROLOGICAL Speech is clear and appropriate. Normal level of consciousness. Gait and coordination are normal. 5/5 strength in all extremities. PSYCH Normal mood and affect. Judgement/competence is appropriate Results & Data Results & Data Vital Signs (Past 12 Hours) Vital Signs Temp Pulse Resp BP Pulse Ox O2 Del Method 08/09/24 07:11 36.7 C 82 18 124/80 97 Room Air 08/09/24 03:23 36.5 C 95 H 18 135/73 94 Room Air PG Care Time/CCT Total # of Minutes Spent Total Time Spent with Patient: Total time spent is greater than 50% in coordination of care (as documented) at patient's floor/unit and/or counseling patient: Coding Level of Care Code 39891 SUB INP/OBS CARE 2/35MIN Diagnoses Hypertension I10 Neurogenic claudication due to lumbar spinal stenosis M48.062
[2024-08-09] MEDS: diphenhydrAMINE Capsule 25 MG CAP PO PRN (14:05)
[2024-08-09] MEDS: IPRATROPIUM BROMIDE NASAL SPRAY 0.06% 15ML NAE PRN (17:29)
[2024-08-10 07:59] VITALS: BP 162/79; RESP 16; TEMP 97.9; O2SAT 96
--- NOTE | 2024-08-10 09:41 | Hospitalist Progress Note ---
Date of Service August 10, 2024 Assessment & Plan (1) Hypertension: Plan: Blood pressures under good control con't amlodipine and lisinopril at home, will continue Continue to monitor blood pressure (2) Neurogenic claudication due to lumbar spinal stenosis: Plan: Lumbar disc herniation: She is now status post lumbar decompression with bilateral medial facetectomies and foraminotomies L2-L3 Also posterior spinal fusion of L2-L3 She is stable postsurgery, drain is in situ, with scant bloody fluid Pain is under good control Rest of management as per orthopedics Plan D/C home once cleared by orthopedics. Admission and Anticipated Discharge Date Admission Date: August 08, 2024 Subjective Pt complaining of nasal congestion, had improvement with benadryl and atrovent nasal spray. Review of Systems Review of Systems: CONST: Negative for fever, body aches and chills. HENT: Negative for neck pain/stiffness, headache, congestion, sore throat, swelling. EYES: Negative for discharge/pain or vision changes. RESP: Negative for cough/hemoptysis and shortness of breath. CV: Negative chest pain, difficulty breathing, palpitations. ABD: Negative pain, nausea, vomiting. : Negative increase frequency, dysuria, blood in urine or stool. MUSC: Negative for muscle aches, edema. SKIN: Negative rash, lesions/sores. NEURO: Negative headache, dizziness, weakness. Physical Exam Physical Exam: GENERAL APPEARANCE NAD, activity normal for age, well developed/ well nourished, no cyanosis, pallor, or diaphoresis. EYES lids/conjunctiva normal. EARS/NOSE/THROAT Mucous membranes moist, nares normal, lips/teeth normal uvula midline without oral pharyngeal erythema, exudate or swelling TMs normal bilaterally. No lymphangitis/lymphedema. HEAD/NECK normocephalic atraumatic, no facial trauma, neck is supple. RESPIRATORY respiratory effort normal, speaks in full sentences, no tripod position, no accessory muscle use. Lungs clear to auscultation without rhonchi, wheezes, rales CARDIAC Regular rate and rhythm, no edema. ABDOMINAL Soft, ND/NT. No evidence of fluid wave. No pulsatile masses on exam, rebound tenderness, Álvarez sign or pain over Mcburney's point. MUSCLES/EXTREMITIES No abnormal range of motion, no swelling. SKIN Warm, pink and dry. No rashes, dermatoses, petechiae or lesions. NEUROLOGICAL Speech is clear and appropriate. Normal level of consciousness. Gait and coordination are normal. 5/5 strength in all extremities. PSYCH Normal mood and affect. Judgement/competence is appropriate Results & Data Results & Data Vital Signs (Past 12 Hours) Vital Signs Temp Pulse Resp BP Pulse Ox O2 Del Method 08/10/24 08:45 Room Air 08/10/24 07:59 36.6 C 92 H 16 162/79 H 96 Room Air PG Care Time/CCT Total # of Minutes Spent Total Time Spent with Patient: Total time spent is greater than 50% in coordination of care (as documented) at patient's floor/unit and/or counseling patient: Coding Level of Care Code 98408 SUB INP/OBS CARE 2/35MIN Diagnoses Hypertension I10 Neurogenic claudication due to lumbar spinal stenosis M48.062
--- NOTE | 2024-08-10 11:15 | Discharge Summary ---
Date of Service August 10, 2024 Admission HPI Per Admitting Provider This is a 65-year-old female who presents with chronic persistent back and leg pain after failing course of nonoperative care she is here for surgical invention. Principal Diagnosis Lumbar spondylosis with radiculopathy Discharge Data Allergies Allergy/AdvReac Type Severity Reaction Status Date / Time cefadroxil Allergy Unknown Hives, rash Verified 08/08/24 05:48 latex Allergy Unknown Possible, Verified 08/08/24 05:48 excrutiating pain with mccracken catheters MCCRACKEN CATHETER AdvReac Intermediate Excrutiating Uncoded 08/08/24 05:48 pain (possible latex allergy) Consultations 08/08/24 11:57 Consult Hospitalist Routine Procedures Performed Operation Date: 08/08/24 07:45 Actual Procedures p L2-L3 Decompression and Fusion(Not Applicable) - David Ferguson DO Ordered Studies 08/08/24 07:45 FL lumbar spine 2-3V Routine Hospital Course (1) Lumbar disc herniation with radiculopathy: Patient underwent lumbar decompression fusion tolerated this well was taken to the orthopedic for postoperative. Post ablation progressed appropriately. SANDRA drain decreasing. Excellent strength and testing. Subsidy discharged home. Discharge orders and instructions from the chart for further review. Total Time Total Time Spent Total Time Spent (In Minutes): 20 minutes Discharge Plan Discharge Items Patient Disposition: Home - Self-Care Reason For Visit: Lumbar Disc Disease with Radiculopathy, Lumbar Spo Discharge Diagnosis: Lumbar spondylosis with radiculopathy Activity: As commented below Non-emergency contact: Primary Care Provider Call non-emergency contact if: you have any medication questions Follow-up/Referrals: Courtney Campbell PA-C [Primary Care Provider] - Diet: Regular Addtl Attending Provider Instructions: ACTIVITY RECOMMENDATIONS: SELF CARE INSTRUCTIONS AFTER THORACIC/LUMBAR FUSIONS 1. You may walk to your tolerance. It is good exercise for your legs and back. Expect some back and intermittent leg aches and pains. 2. You may perform "counter-top" level activities (make a sandwich, marce with a project, etc.). 3. No bending or lifting of more than 10 pounds or back twisting of any nature (roll like a log when turning in bed). 4. You may ride in a car for 20-30 minutes at a time. No driving until after your first visit with your doctor. 5. Frequent changes of position and restricting sitting to 30 minutes at a time will help limit the amount of back spasms and stiffness you may experience. 6. You may discontinue the use of ambulatory aids (cane, crutches, etc.) once your strength and confidence allow. 7. You may r d internship the shower and let water strike your incision when you arrive home at least once daily. Do not take a tub bath, sit in a hot tub or go into a swimming pool until after your first recheck in the office. 8. You may resume previous diet. SPECIAL CARE INSTRUCTIONS: VERY IMPORTANT TO READ AND REVIEW A. Your surgical incision has been closed with a cosmetic suture under the skin that will dissolve in about 6 weeks. In 14 days, you can use a pair of clean scissors and cut the suture that is left outside of the skin at the ends of your incision. 1. The small skin tapes can be removed 7 days after surgery if they have not fallen off by that point. 2. You may keep the wound open to air as much as possible to promote healing after post-op day number 5 unless told otherwise by your doctor. 3. If you think the wound looks like it is becoming infected (redness or worsening drainage) and/or you are experiencing fever, chill or worsening back pain and muscle spasms, contact the office so that we may evaluate you as soon as possible. B. Complications are uncommon, but please contact us if you have any signs or symptoms of: 1. wound infection (fever higher than 102.5 degrees F, redness, separation of wound, drainage, or increasing pain from the incision) 2. blood clots in legs (pain, swelling, redness and warmth in legs) 3. urinary tract infection (fever higher than 102.5 degrees F, burning upon urination or increased frequency of urination) 4. nerve problems (inability to walk on your toes or heels, numbness, loss of bowel or bladder control) 5. any other symptoms that concern you C. Please call the office at if you have any concerns or questions about your operation or recovery. D. No smoking! Smoking drastically decreases the chance of a solid fusion. E. Do not take any anti-inflammatory medications (Indocin, Advil, Motrin, Aspirin, Naprosyn, etc.) as these may inhibit the chance of a solid fusion. Tylenol is okay to take for pain. MANAGING PAIN AFTER SPINAL SURGERY 1. Narcotic medication is intended for short-term use and will be provided for surgical pain. Surgical pain usually lasts for a period of 4-6 weeks. Narcotic medication includes Percocet, Vicodin, Darvocet, Tylenol #3 or Lortab. 2. Longer-term pain is more appropriately treated with non-narcotic medication such as Tylenol ES. 3. Muscle spasm is not appropriately treated with narcotics. Muscle relaxers such as Soma, Flexeril or Skelaxin can be used along with Tylenol ES. 4. Remember that we all live with some "aches and pains". This is not unusual or uncommon after an injury or as we get older. a. Back pain is expected and may include muscle spasms for 4 to 6 weeks after surgery. The pain should gradually improve. If the pain worsens for no apparent reason, please contact the office. b. Intermittent leg pain may also be experienced and should not be concerned about unless it worsens for no apparent reason. If so, please contact the office. 5. We will provide appropriate medication within the normal guidelines of their prescribed use. We will also be very cautious and aware of potential abuse and extended duration of patients' medication needs. a. Pain medications are for your comfort and to assist with sleep and rest so that the tissue can heal. They are not provided in order to return to normal activity and should not be used through the day. To do so or worsening pain at night can result from ongoing tissue damage and development of tolerance to the prescribed medicine. 6. Please allow 2-3 days to process refills. Prescriptions will not be mailed but must be picked up at the office. FOLLOW UP VISIT: Keep your scheduled follow-up appointment. Any questions, please call the office at . Pending Studies at Discharge: No Stand-Alone Forms: [employer], Smoking Cessation Medications and [place] Order Prescriptions: New tramadol 50 mg tablet 50 mg PO Q6H PRN (Reason: pain, moderate) Qty: 30 0RF oxycodone 5 mg tablet 5 mg PO Q6H PRN (Reason: pain) Qty: 30 0RF Continued multivitamin Tablet 1 tab PO QPM amlodipine 5 mg Tablet 10 mg PO QPM pravastatin 20 mg Tablet 40 mg PO QPM lisinopril 40 mg Tablet 40 mg PO QPM coQ10 (ubiquinol) 200 mg Capsule 400 mg PO QPM meloxicam 15 mg tablet 15 mg PO PM acetaminophen 650 mg Tablet Extended Release 1,300 mg PO Q12H PRN (Reason: Pain) Discharge Orders: Discharge Order (Routine); Ordered 08/10/24 Ordered By: David Ferguson Admission Data Admit Date/Time: 08/08/24 09:54 Attending Provider: David Ferguson Admit Provider: David Ferguson Primary Care Provider: Courtney Campbell. Other Providers: Suhail Lechuga
[2024-08-10 12:32] VITALS: PULSE 89
[2024-08-10] MEDS: oxyCODONE HCL IR 5 MG TAB (IMMEDIATE RELEASE) PO PRN (12:41)
== END 2024-08-10 13:44 | disposition home or self-care (01) | DRG 402 ==
LOC: ASU 05:23 → INTOOBSV 09:54 → 3E 09:54